=== PATIENT | male | born 1935 | race Caucasian/White ===

== ENCOUNTER 2020-04-02 07:57 | Outpatient (REF) | payer MEDICARE, OTHER, SELFPAY ==
[2020-04-02 11:19] LABS: Prostate Specific Antigen 5.46 ng/mL (<0.05-4.0)
== END 2020-04-02 07:58 | disposition home or self-care (01) ==
LOC: HO.10HDL 07:57
PROVIDERS: Visit Provider Urology
DX: N40.1 Benign prostatic hyperplasia with lower urinary tract symptoms (principal); Z12.5 Encounter for screening for malignant neoplasm of prostate
CPT/HCPCS: 36415; 84153

== ENCOUNTER → 2020-04-03 08:45 | Outpatient (BNVA) | payer MEDICARE, OTHER, SELFPAY | PROVIDERS: Visit Provider Urology | DX: N40.1 Benign prostatic hyperplasia with lower urinary tract symptoms (principal); R35.1 Nocturia; N13.8 Other obstructive and reflux uropathy | CPT/HCPCS: Q3014 ==

== ENCOUNTER 2020-09-01 16:54 | Outpatient (REF) | payer SELFPAY | END 2020-09-01 16:55 | disposition home or self-care (01) | LOC: HO.HAP 16:54 | PROVIDERS: Visit Provider Internal Medicine | DX: Z13.89 Encounter for screening for other disorder (principal) ==

== ENCOUNTER 2020-09-15 13:21 | Outpatient (REF) | payer SELFPAY | END 2020-09-15 13:22 | disposition home or self-care (01) | LOC: HO.HAP 13:21 | PROVIDERS: Visit Provider Hospitalist | DX: Z46.1 Encounter for fitting and adjustment of hearing aid (principal); H90.3 Sensorineural hearing loss, bilateral | CPT/HCPCS: V5014 ==

== ENCOUNTER 2020-09-19 07:54 | Outpatient (REF) | payer MEDICARE, OTHER, SELFPAY ==
--- NOTE | 2020-09-24 10:16 | MHC.AU.AHA ---
Adult Audiological Evaluation Date of Visit: 09/19/20 Machine Iii Coremaker Used: Not Applicable Reason for Appointment: Audiologic re-evaluation to determine possible change in hearing ability. 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 He reports he has experienced problems with the right hearing aid; however the device was replaced recently and Alvin notes the hearing aid is working well with improved hearing. Previous Hearing Test Results: 10/18/2016 [facility] Borderline normal hearing thresholds 125-500 Hz, dropping to a severe/profound high frequency sensorineural hearing loss bilaterally. Speech understanding was 85% for both ears at 80 dB HL Medical History: Medical History: High Blood Pressure Medication List: Lisinopril Hearing Instrument History- Right Ear: Quality Assurance Analyst: GenJuice Model: Boomerang.comeo B 70-R Serial Number: [id number] Battery Size: Rechargeable Repair Warranty: Loss and Damage Warranty: Dispensed By: [facility] Date of Fittin10/27/2016 Replaced 09/09/20 Hearing Instrument History- Left Ear: Quality Assurance Analyst: GenJuice Model: Boomerang.comeo B70-R Serial Number: [id number] Battery Size: Rechargeable Warranty: 01/18/2020 Loss and Damage Warranty: 01/18/2020 Dispensed By: [facility] Date of Fittin10/27/2016 Otoscopy: Right Ear: Unremarkable Left Ear: Unremarkable Tympanometry: Tympanometry performed due to: To assess integrity of the middle ear system Right Ear: Normal Middle Ear System (Type A) Left Ear: Hypercompliant Middle Ear System (Type Ad) Hearing Evaluation: Transducer(s) Used: Insert Earphones Bone Conduction Method: Conventional Audiometry Stimuli Used: Pure Tones Right Ear: Description of Hearing: Mild dropping to profound sensorineural hearing loss Left Ear: Description of Hearing: Mild dropping to profound sensorineural hearing loss Speech Recognition Threshold (SRT): Method Used: Monitored Live Voice Stimuli Used: Spondee Words Right Ear: 40 dB HL Left Ear: 40 dB HL Word Discrimination: Method: Recorded Lists Word Lists Used: NU-6 Right Ear: 88% at 80 dB HL Left Ear: 84% at 80 dB HL Comparison: Compared to most recent evaluation: Overall thresholds for both ears have decreased 5-10 dB with stable speech discrimination ability. Recommendations: Audiological re-evaluation in one year. Will send a reminder card. Hearing aid(s) reprogrammed with updated test results. If further adjustments are needed, [place] is advised to schedule an appointment. Diagnosis: Primary Diagnosis: H90.3 Bilateral Sensorineural Hearing Loss Services Performed: Comprehensive Audiological Evaluation (CPT 26821) Tympanometry (CPT 60229) Signature: Provider: Fidelina Snowden, CHERRY-A
== END 2020-09-19 07:55 | disposition home or self-care (01) ==
LOC: HO.SH 07:54
PROVIDERS: Visit Provider Internal Medicine
DX: H90.3 Sensorineural hearing loss, bilateral (principal)
CPT/HCPCS: 92557; 92567

== ENCOUNTER 2020-10-06 09:15 | Outpatient (REF) | payer MEDICARE, OTHER, SELFPAY ==
[2020-10-06 11:03] LABS: Prostate Specific Antigen 7.43 ng/mL (<0.05-4.0)
== END 2020-10-06 09:16 | disposition home or self-care (01) ==
LOC: HO.10HDL 09:15
PROVIDERS: Visit Provider Urology
DX: Z12.5 Encounter for screening for malignant neoplasm of prostate (principal); N13.8 Other obstructive and reflux uropathy; N40.1 Benign prostatic hyperplasia with lower urinary tract symptoms
CPT/HCPCS: 36415; 84153

== ENCOUNTER 2020-12-10 08:42 | Outpatient (REF) | payer MEDICARE, OTHER, SELFPAY ==
[2020-12-10 11:11] LABS: Prostate Specific Antigen 6.84 ng/mL (<0.05-4.0)
== END 2020-12-10 08:43 | disposition home or self-care (01) ==
LOC: HO.10HDL 08:42
PROVIDERS: Visit Provider Urology
DX: Z12.5 Encounter for screening for malignant neoplasm of prostate (principal); N40.1 Benign prostatic hyperplasia with lower urinary tract symptoms
CPT/HCPCS: 36415; 84153

== ENCOUNTER → 2021-01-23 08:27 | Outpatient (BNVA) | payer MEDICARE, OTHER, SELFPAY | PROVIDERS: PCP Internal Medicine; Visit Provider Urology | DX: N40.1 Benign prostatic hyperplasia with lower urinary tract symptoms (principal); N13.8 Other obstructive and reflux uropathy; R35.1 Nocturia | CPT/HCPCS: 99212 ==

== ENCOUNTER 2021-03-25 01:23 | Emergency (ER) | payer MEDICARE, OTHER, SELFPAY ==
[2021-03-25 01:33] VITALS: BP 116/65; PULSE 90; RESP 18; TEMP 37.3; O2SAT 95; BMI 24.4
[2021-03-25 02:02] LABS: COVID-19 Test Positive (Negative); IDNOW Serial# 9DD0AD1C
== END 2021-03-25 05:19 | disposition left against medical advice (07) ==
PROVIDERS: Emergency Provider Emergency Medicine
DX: R50.9 Fever, unspecified (principal); R06.02 Shortness of breath; Z20.822 Contact with and (suspected) exposure to COVID-19
CPT/HCPCS: 87635; 99281

== ENCOUNTER 2021-07-13 08:47 | Outpatient (REF) | payer MEDICARE, OTHER, SELFPAY | END 2021-07-13 08:48 | disposition home or self-care (01) | LOC: HO.10HDL 08:47 | PROVIDERS: Visit Provider Urology | DX: N40.1 Benign prostatic hyperplasia with lower urinary tract symptoms (principal); N13.8 Other obstructive and reflux uropathy; Z12.5 Encounter for screening for malignant neoplasm of prostate | CPT/HCPCS: 36415; 84153 ==

== ENCOUNTER 2021-07-27 12:18 | Outpatient (REF) | payer SELFPAY | END 2021-07-27 12:19 | disposition home or self-care (01) | LOC: HO.HAP 12:18 | PROVIDERS: Visit Provider Internal Medicine | DX: Z46.1 Encounter for fitting and adjustment of hearing aid (principal); H90.3 Sensorineural hearing loss, bilateral | CPT/HCPCS: V5267 ==

== ENCOUNTER → 2021-07-30 08:24 | Outpatient (BNVA) | payer MEDICARE, OTHER, SELFPAY | PROVIDERS: PCP Internal Medicine; Visit Provider Urology | DX: N40.1 Benign prostatic hyperplasia with lower urinary tract symptoms (principal); N13.8 Other obstructive and reflux uropathy; R35.1 Nocturia | CPT/HCPCS: 51798; 99212 ==

== ENCOUNTER 2021-09-03 19:42 | Emergency (ER) | payer MEDICARE, OTHER, SELFPAY ==
--- NOTE | ~2021-09-03 | XR_ITS ---
EXAMINATION: XR CHEST CLINICAL INFORMATION: Cough COMPARISON: X-ray 04/12/2019 TECHNIQUE: 2 views of the chest were obtained. FINDINGS: Stable cardiomediastinal silhouette. Stable mild elevation right hemidiaphragm. There is hazy opacity in the right lower lung, which could represent infiltrate.. No dense consolidation left lung. No effusion, edema or pneumothorax. Thoracic spine degeneration. XR/XR chest 2V IMPRESSION: Hazy opacity in the right lower lung could represent infiltrate.
[2021-09-03 19:48] VITALS: BP 171/80; PULSE 83; RESP 18; TEMP 37.4; O2SAT 94; BMI 26.6
--- NOTE | 2021-09-03 19:58 | ECG_ITS ---
Test Reason : sob Blood Pressure : / mmHG Vent. Rate : 088 BPM Atrial Rate : 088 BPM P-R Int : 190 ms QRS Dur : 106 ms QT Int : 356 ms P-R-T Axes : 030 -66 061 degrees QTc Int : 430 ms Normal sinus rhythm Incomplete right bundle branch block Left anterior fascicular block Moderate voltage criteria for LVH, may be normal variant ( R in aVL , [place] product ) Abnormal ECG When compared with ECG of 12-APR-2019 12:03, Aberrant conduction is no longer Present Referred By: Generic ED Physician Electronically Signed By:Oliver Aguila
[2021-09-03 20:36] LABS: Basophils Absolute Auto 0.1 X10*3/uL (0.0-0.2); Basophils Percent Auto 0.4 % (0-2); Eosinophils Absolute Auto 0.3 X10*3/uL (0.0-0.4); Hematocrit 40.2 % (42.0-52.0); Hemoglobin 13.9 g/dl (14.0-18.0); Imm Gran Abs Auto 0.08 X10*3/uL (0.00-0.03); Imm Gran Pct Auto 0.6 % (0.0-0.4); Lymphocytes Absolute Auto 1.1 X10*3/uL (1.2-4.9); Lymphocytes Percent Auto 8.1 % (20-40); MANUAL DIFF FLAG SCAN; Mean Corpuscular HGB Conc 34.6 g/dl (31.0-36.0); Mean Corpuscular Hemoglobin 31.2 pg (27.0-33.0); Mean Corpuscular Volume 90.1 fL (80.0-98.0); Mean Platelet Volume 9.6 fL (9.4-12.4); Monocytes Absolute Auto 1.6 X10*3/uL (0.1-1.2); Neutrophils Absolute Auto 10.5 x10*3/uL (2.0-8.3); Neutrophils Percent Auto 76.9 % (45-73); Platelet Count 205 X10*3/uL (160-400); Red Blood Count 4.46 X10*6/uL (4.60-5.80); Red Cell Distribution Width 12.9 % (11.0-16.0); SCAN SMEAR FLAG 1; White Blood Count 13.6 X10*3/uL (4.8-10.8)
--- NOTE | 2021-09-03 20:39 | ED_ITS ---
HPI - Fever General Chief Complaint: Fever Stated Complaint: fever Time Seen by Provider: 09/03/21 20:27 Source: patient Mode of arrival: ambulatory Limitations: no limitations History of Present Illness HPI Narrative: 86-year-old male with a history of high blood pressure, BPH here with reports of subjective fevers for the last 5 days. Patient tells me he has had hot and cold symptoms at home. Patient reports malaise, decreased appetite. He also has a dry cough. No shortness of breath, chest pain, vomiting, diarrhea, abdominal pain, urinary symptoms. Patient tells me he has a history of UTI with bactere tg Related Data Home Medications Medication Instructions Recorded Confirmed acetaminophen 300 mg-codeine 30 mg 1 tab PO PRN 04/03/20 tablet levofloxacin 750 mg tablet 750 mg PO DAILY 04/03/20 lisinopril 10 mg tablet 10 mg PO DAILY 04/03/20 omeprazole 20 mg capsule,delayed 20 mg PO DAILY 04/03/20 release tamsulosin 0.4 mg capsule 0.4 mg PO BEDTIME 04/03/20 trimethoprim 100 mg tablet 100 mg PO DAILY 04/03/20 Previous Rx's Medication Instructions Recorded finasteride 5 mg tablet 5 mg PO DAILY 90 days #90 tabs 01/23/21 finasteride 5 mg tablet 5 mg PO DAILY 90 days #90 tabs 07/30/21 doxycycline monohydrate 100 mg 100 mg PO BID #14 caps 09/03/21 capsule Allergies Allergy/AdvReac Type Severity Reaction Status Date / Time ceftriaxone [CEFTRIAXONE] Allergy Unknown HIVES Verified 09/03/21 19:48 mold [MOLD] Allergy Unknown ITCHIY Verified 09/03/21 19:48 THROAT,STUFFY HEAD Rocephin Allergy Intermediate rash Uncoded 01/23/21 08:35 Review of Systems Review of Systems: Yes all other systems are reviewed and are negative Constitutional: Constitutional: Reports no additional constitutional complaints, Denies body ache(s), Reports chills, Reports fever(s), Denies headache(s), Reports malaise and Denies weakness Eyes: Eyes: Reports no additional eye complaints and Denies change in vision ENT: Reports system reviewed and no additional complaints, except as documented, Denies dizziness, Denies headache(s), Denies nasal congestion, Denies nasal discharge and Denies neck pain Cardiovascular: Cardiovascular: Reports no additional cardiovascular complaints, Denies chest pain, Denies leg edema and Denies dyspnea Respiratory: Respiratory: Reports no additional respiratory complaints, Reports cough and Denies dyspnea Gastrointestinal: Gastrointestinal: Reports no additional gastrointestinal complaints, Denies abdominal pain, Denies diarrhea, Denies nausea and Denies vomiting Genitourinary: Genitourinary: Denies urinary incontinence Musculoskeletal: Musculoskeletal: Reports no additional musculoskeletal complaints, Denies back pain, Denies arthralgias, Denies joint swelling, Denies neck pain, Denies numbness and Denies tingling Integumentary/Breasts: Skin/Breast: Reports system reviewed and no additional complaints, except as docu and Denies rash Neurologic: Reports system reviewed and no additional complaints, except as documented, Denies Abnormal speech present, Denies dizziness, Denies headache(s), Denies numbness, Denies tingling and Denies weakness PMFSH Past Medical History Attestation statement: The following information was validated with the patient. Source: old records reviewed and nursing notes reviewed Social History Social History Alcohol intake: former Patient Tobacco Use Status: Never used Tobacco Advance Directives: No Advance Directives Information Provided: No Physical Exam Vital Signs: Vital Signs: Last Vital Signs Temp 98.7 F 09/03/21 22:52 Pulse 77 09/03/21 22:52 Resp 16 09/03/21 22:52 BP 171/80 H 09/03/21 19:48 Pulse Ox 99 09/03/21 22:52 O2 Del Method 09/03/21 22:52 BMI result Body Mass Index 26.6 Const: General: cooperative, healthy appearing, comfortable and no acute distress Orientation/consciousness: patient oriented x3 Limitations: no limitations HEENT: Head: Yes normal to inspection Ears: hearing grossly normal bilaterally General nose exam: Normal external nose present Face and sinus: Yes normal facial exam Mouth: Normal oral and palatal mucosa present Throat: Yes posterior oropharynx normal Eyes: General: appearance normal, both eyes and all related structures Pupils: Equal, round and reactive pupils present Neck: Neck: Yes normal visual inspection Chest: Chest palpation & inspection: normal inspection of the chest Resp: Effort & Inspection: normal respiratory effort Auscultation: clear to auscultation bilaterally Cardio: Rate: regular rate Rhythm: regular rhythm Peripheral pulses: Peripheral pulses 2+ throughout GI: Inspection: Yes normal to inspection Palpation (GI): Soft to palpation and nontender Auscultation: normal bowel sounds Back/Spine/Pelvis: Thoracic/Lumbar Spine: thoracic and lumbar spine normal to inspection Skin: General skin exam: no rashes or lesions noted Neuro: General: patient oriented x3, no focal motor deficits and normal sensation to monofilament Cranial nerves: Yes Equal, round and reactive pupils present Cognition (Neuro): normal cognition Speech: No Abnormal s peech present Gait exam (Neuro): Normal gait present Motor exam (neuro): 5/5 motor strength present throughout Extrem: General: Yes normal to inspection Course Reevaluation(s) Reevaluation #1: Chest x-ray is concerning for a right lobe infiltrate. UA shows no signs of infection. Labs show mild leukocytosis but otherwise are unremarkable. Patient is afebrile here. He ambulated with a pulse oximeter with oxygen saturation greater than 95% and no tachypnea or tachycardia. Patient feels well. He is alert and oriented x3. He does not want to be admitted to the hospital on like to go home with oral antibiotics. Admission was offered but patient feels comfortable going home. I did explain to him that he will need to return if his blood cultures are positive. He should also return for any worsening symptoms. He is here with family. They are comfortable with plan for discharge. Time: 23:30 MDM - Fever MDM Narrative Medical decision making narrative: 86-year-old male here with subjective fevers, malaise, decreased appetite for 5 days with a dry cough. Will check labs including blood cultures and lactic acid, EKG, chest x-ray, UA, flu and COVID testing. Differential Diagnosis Differential diagnosis: Likely fever of unknown origin, community acquired pneumonia, viral infection, sepsis and influenza Medical Records Attestation: I reviewed the patient's medical records. Lab Data Attestation: I reviewed the patient's lab results. Result diagrams: 09/03/21 20:22 09/03/21 20:22 Labs: Lab Results 09/03/21 09/03/21 09/03/21 Range/Units 20:04 20:22 20:22 WBC 13.6 H (4.8-10.8) X10*3/uL RBC 4.46 L (4.60-5.80) X10*6/uL Hgb 13.9 L (14.0-18.0) g/dl Hct 40.2 L (42.0-52.0) % MCV 90.1 (80.0-98.0) fL MCH 31.2 (27.0-33.0) pg MCHC 34.6 (31.0-36.0) g/dl RDW 12.9 (11.0-16.0) % Plt Count 205 (160-400) X10*3/uL MPV 9.6 (9.4-12.4) fL Immature Gran % (Auto) 0.6 H (0.0-0.4) % Neut % (Auto) 76.9 H (45-73) % Lymph % (Auto) 8.1 L (20-40) % [place] % (Auto) 12.0 H (2-11) % Eos % (Auto) 2.0 (0-4) % Baso % (Auto) 0.4 (0-2) % Lymph # (Auto) 1.1 L (1.2-4.9) X10*3/uL [place] # (Auto) 1.6 H (0.1-1.2) X10*3/uL Eos # (Auto) 0.3 (0.0-0.4) X10*3/uL Baso # (Auto) 0.1 (0.0-0.2) X10*3/uL Abs Immat Gran (auto) 0.08 H (0.00-0.03) X10*3/uL Absolute Neuts (auto) 10.5 H (2.0-8.3) x10*3/uL Absolute Nucleated RBC 0.000 (0.0-0.012) X10*3/uL Nucleated RBC % (auto) 0.0 (0.0-0.2) /100WBC Smear Tech's Comments VERIFIED Sodium 132 L (135-145) mmol/L Potassium 4.5 (3.3-5.1) mmol/L Chloride 104 (96-108) mmol/L Carbon Dioxide 21 L (22-29) mmol/L Anion Gap 12 (12-20) BUN 21 H (9-16) mg/dL Creatinine 1.01 (0.5-1.4) mg/dL Estim Creat Clear Calc 57.6 Estimated GFR > 60 Random Glucose 100 (60-115) mg/dL Lactic Acid (0.5-2.0) mmol/L Calcium 8.9 (8.4-10.2) mg/dL Total Bilirubin 1.0 (0.0-1.0) mg/dL AST 19 (5-37) U/L ALT 21 (0-40) U/L Alkaline Phosphatase 53 (39-117) U/L Troponin I High Sens (<3.5-35.0) ng/L Total Protein 7.1 (6.5-8.0) g/dL Albumin 4.0 (3.5-5.0) g/dL Urine Color Urine Appearance Urine pH (5.0-8.0) Ur Specific [place] (1.005-1.025) Urine Protein (NEG-TRACE) MG/DL Urine Glucose (UA) (NEG) MG/DL Urine Ketones (NEG) MG/DL Urine Blood (NEG) Urine Nitrite (NEG) Ur Leukocyte Esterase (NEG) Urine RBC (0) /HPF Urine WBC (0-4) /HPF Ur Squamous Epith Cells /LPF Urine Bacteria /LPF Influenza Type A (PCR) NEGATIVE (Negative) Influenza Type B (PCR) NEGATIVE (Negative) RSV RNA Qual (PCR) NEGATIVE (Negative) SARS-CoV-2 RNA (RT-PCR) NEGATIVE (Negative) 09/03/21 09/03/21 09/03/21 Range/Units 20:22 20:22 21:24 WBC (4.8-10.8) X10*3/uL RBC (4.60-5.80) X10*6/uL Hgb (14.0-18.0) g/dl Hct (42.0-52.0) % MCV (80.0-98.0) fL MCH (27.0-33.0) pg MCHC (31.0-36.0) g/dl RDW (11.0-16.0) % Plt Count (160-400) X10*3/uL MPV (9.4-12.4) fL Immature Gran % (Auto) (0.0-0.4) % Neut % (Auto) (45-73) % Lymph % (Auto) (20-40) % [place] % (Auto) (2-11) % Eos % (Auto) (0-4) % Baso % (Auto) (0-2) % Lymph # (Auto) (1.2-4.9) X10*3/uL [place] # (Auto) (0.1-1.2) X10*3/uL Eos # (Auto) (0.0-0.4) X10*3/uL Baso # (Auto) (0.0-0.2) X10*3/uL Abs Immat Gran (auto) (0.00-0.03) X10*3/uL Absolute Neuts (auto) (2.0-8.3) x10*3/uL Absolute Nucleated RBC (0.0-0.012) X10*3/uL Nucleated RBC % (auto) (0.0-0.2) /100WBC Smear Tech's Comments Sodium (135-145) mmol/L Potassium (3.3-5.1) mmol/L Chloride (96-108) mmol/L Carbon Dioxide (22-29) mmol/L Anion Gap (12-20) BUN (9-16) mg/dL Creatinine (0.5-1.4) mg/dL Estim Creat Clear Calc Estimated GFR Random Glucose (60-115) mg/dL Lactic Acid 0.7 (0.5-2.0) mmol/L Calcium (8.4-10.2) mg/dL Total Bilirubin (0.0-1.0) mg/dL AST (5-37) U/L ALT (0-40) U/L Alkaline Phosphatase (39-117) U/L Troponin I High Sens 11.8 (<3.5-35.0) ng/L Total Protein (6.5-8.0) g/dL Albumin (3.5-5.0) g/dL Urine Color YELLOW Urine Appearance CLEAR Urine pH 5.5 (5.0-8.0) Ur Specific [place] <= 1.005 (1.005-1.025) Urine Protein NEG (NEG-TRACE) MG/DL Urine Glucose (UA) NEG (NEG) MG/DL Urine Ketones NEG (NEG) MG/DL Urine Blood 1+ H (NEG) Urine Nitrite NEG (NEG) Ur Leukocyte Esterase TRACE H (NEG) Urine RBC 1-4 (0) /HPF Urine WBC 0-2 (0-4) /HPF Ur Squamous Epith Cells NONE /LPF Urine Bacteria TRACE /LPF Influenza Type A (PCR) (Negative) Influenza Type B (PCR) (Negative) RSV RNA Qual (PCR) (Negative) SARS-CoV-2 RNA (RT-PCR) (Negative) Imaging Data Chest x-ray: Attestation: I personally reviewed and interpreted this imaging study as follows: Radiologist's impression: [address] [address] XRay Report Signed Patient: Alvin Staley MR#: [id number] : 1935 Acct:[id number] Age/Sex: 86 / M ADM Date: 09/03/21 Loc: .ED Attending Dr: Ordering Physician: Juanjose Anaya MD Date of Service: 09/03/21 Procedure(s): XR chest 2V Accession Number(s): [id number] cc: Juanjose Anaya MD~ EXAMINATION: XR CHEST CLINICAL INFORMATION: Cough COMPARISON: X-ray 04/12/2019 TECHNIQUE: 2 views of the chest were obtained. FINDINGS: Stable cardiomediastinal silhouette. Stable mild elevation right hemidiaphragm. There is hazy opacity in the right lower lung, which could represent infiltrate.. No dense consolidation left lung. No effusion, edema or pneumothorax. Thoracic spine degeneration. XR/XR chest 2V IMPRESSION: Hazy opacity in the right lower lung could represent infiltrate. ECG Data ECG #1: Attestation: I personally reviewed and interpreted this ECG as follows: ECG interpretation date: 09/03/21 ECG interpretation time: 19:56 Interpretation: Normal sinus rhythm with a rate 88, normal MA, normal QRS, normal QT, flipped T- waves solitary avl Discharge Plan Discharge Clinical Impression: Pneumonia Patient Disposition: Home, Self-Care Instructions: Pneumonia (ED) Additional Instructions: Testing for flu and COVID are negative Chest x-ray shows a right-sided pneumonia. Urine shows no signs of infection. He has a mildly elevated white blood cell count which can be seen with infection. He had blood cultures at will sent. These take 1-2 days to be resulted. We will call you if these are positive. At that time he will need to return for admission to the hospital. If he should develop weakness, vomiting, confusion, difficulty breathing he should return to the emergency department. We did discuss staying in the hospital overnight but he did not feel like he needed this and wanted to go home Prescriptions: New doxycycline monohydrate 100 mg capsule 100 mg PO BID Qty: 14 0RF No Action lisinopril 10 mg tablet 10 mg PO DAILY trimethoprim 100 mg tablet 100 mg PO DAILY acetaminophen-codeine 300-30 mg tablet 1 tab PO PRN tamsulosin 0.4 mg capsule 0.4 mg PO BEDTIME levofloxacin 750 mg tablet 750 mg PO DAILY omeprazole 20 mg capsule,delayed release(DR/EC) 20 mg PO DAILY finasteride 5 mg tablet 5 mg PO DAILY 90 Days Qty: 90 1RF Rx Instructions: Take Tuesday, Tuesday, Tuesday finasteride 5 mg tablet 5 mg PO DAILY 90 Days Qty: 90 3RF Referrals: Physician,Unknown J [Primary Care Provider] - 1 week (as needed) Interventions: ED Discharge Assessment Last Done: 09/03/21 23:48 Discharge Date/Time: 09/03/21 23:49
[2021-09-03] MEDS: 0.9 % Sodium Chloride 1,000 ML 999 ML IV (20:42)
[2021-09-03 20:44] VITALS: TEMP 37.4
[2021-09-03 20:49] LABS: Influenza A PCR NEGATIVE (Negative); Influenza B PCR NEGATIVE (Negative); Resp Syncy Virus RNA Qual PCR NEGATIVE (Negative); SARS COV2 PCR INHOUSE NEGATIVE (Negative)
[2021-09-03 20:52] LABS: Lactic Acid 0.7 mmol/L (0.5-2.0)
[2021-09-03 20:53] LABS: SLIDE REVIEW VERIFIED
[2021-09-03 20:56] LABS: Alanine Aminotransferase 21 U/L (0-40); Alkaline Phosphatase 53 U/L (39-117); Anion Gap 12 (12-20); Aspartate Amino Transferase 19 U/L (5-37); Blood Urea Nitrogen 21 mg/dL (9-16); Calcium 8.9 mg/dL (8.4-10.2); Carbon Dioxide 21 mmol/L (22-29); Chloride 104 mmol/L (96-108); Creatinine Clr Calc Pharmacy 57.6; Estimated Glomerular Filt Rate > 60; Glucose Random 100 mg/dL (60-115); Potassium 4.5 mmol/L (3.3-5.1); Sodium 132 mmol/L (135-145); Total Protein 7.1 g/dL (6.5-8.0)
[2021-09-03 21:02] LABS: Troponin-I High Sensitivity 11.8 ng/L (<3.5-35.0)
[2021-09-03 21:37] LABS: Appearance Urine CLEAR; Color Urine YELLOW; Glucose Urine UA NEG (NEG); Leukocyte Esterase Urine TRACE (NEG); Nitrite Urine NEG (NEG); PH 5.5 (5.0-8.0); Specific Gravity - Urine <= 1.005 (1.005-1.025); UACC Culture Trigger NO; Urine Blood 1+ (NEG); Urine Ketones NEG (NEG); Urine Protein NEG (NEG-TRACE)
[2021-09-03 21:44] LABS: WBC Urine 0-2 /HPF (0-4)
[2021-09-03 21:45] LABS: Bacteria Urine TRACE /LPF
[2021-09-03] MEDS: Acetaminophen 325 MG TABLET 975 MG PO (22:10)
[2021-09-03 22:52] VITALS: PULSE 77; RESP 16; TEMP 37.1; O2SAT 99
== END 2021-09-03 23:49 | disposition home or self-care (01) ==
PROVIDERS: Emergency Provider Emergency Medicine Emergency Medical Services
DX: J18.9 Pneumonia, unspecified organism (principal); Z20.822 Contact with and (suspected) exposure to COVID-19; R50.9 Fever, unspecified
CPT/HCPCS: 0241U; 36415; 71046; 80053; 81001; 83605; 84484; 85025; 87040; 93005; 96360; 99284; 99285

== ENCOUNTER 2021-10-08 10:56 | Outpatient (REF) | payer MEDICARE, OTHER, SELFPAY ==
--- NOTE | ~2021-10-08 | XR_ITS ---
EXAMINATION: XR CHEST 2 VIEWS CLINICAL INFORMATION: Right lower lobe pneumonia. COMPARISON: Chest radiographs dated 09/03/2021. TECHNIQUE: Frontal and lateral views of the chest were obtained. FINDINGS: The heart, great vessels, pulmonary vasculature and mediastinum are normal. The lungs show no focal infiltrate, effusion or pneumothorax. There is stable moderate elevation of the right hemidiaphragm. There is no acute osseous abnormality. XR/XR chest 2V IMPRESSION: No active cardiopulmonary disease. Again, there is moderate elevation of the right hemidiaphragm.
== END 2021-10-08 10:57 | disposition home or self-care (01) ==
LOC: HO.XRAY 10:56
PROVIDERS: PCP Internal Medicine; Visit Provider Internal Medicine
DX: J18.9 Pneumonia, unspecified organism (principal)
CPT/HCPCS: 71046

== ENCOUNTER 2021-12-29 13:47 | Outpatient (REF) | payer MEDICARE, OTHER, SELFPAY | END 2021-12-29 13:48 | disposition home or self-care (01) | LOC: HO.SH 13:47 | PROVIDERS: Visit Provider Nurse Practitioner Family | DX: Z01.118 Encounter for examination of ears and hearing with other abnormal findings (principal); H90.3 Sensorineural hearing loss, bilateral | CPT/HCPCS: 92557 ==

== ENCOUNTER 2021-12-29 16:30 | Outpatient (REF) | payer SELFPAY ==
--- NOTE | 2021-12-30 13:05 | MHC.AU.HFU ---
Hearing Instrument Follow-Up- Binaural Date of Visit: 12/29/21 Right Ear: [place] Trimmer: Phonak Model: Audeo B 70-R Serial Number: [id number] Repair Warranty: Battery Size: Rechargeable Color: Sand Beige Health Professional: 3xS Type of Dome: Medium closed Type of Wax Guard: Cerustop Dispensed By: [facility] Date of Fittin10/27/2016 Replaced 09/09/20 Left Ear: [place] Trimmer: Phonak Model: Audeo B70-R Serial Number: [id number] Repair Warranty: Battery Size: Rechargeable Color: Sand Beige Health Professional: 3xS Type of Dome: Medium closed Type of Wax Guard: Cerustop Dispensed By: [facility] Date of Fittin10/27/2016 Follow-Up Summary: Alvin returned for hearing aid maintenance, as his left hearing aid is missing the data librarian wire. He reported the wire became twisted and broke off from the hearing aid a couple weeks ago. Both of his hearing aids were cleaned, microphones were vacuumed, and domes and wax guards were replaced. A new data librarian was replaced on the left hearing aid. A listening check demonstrated the hearing aids are in good working order. Programming changes were not made today, as Alvin's hearing has remained stable and he reported overall good sound quality and benefit from the hearing aids. Recommendations: Hearing instrument maintenance in 6 months, or sooner if needed. Please contact our clinic with any questions or concerns. Diagnosis Code(s): Primary Diagnosis: H90.3 Bilateral Sensorineural Hearing Loss Signature: Provider: Kathryn Parker, [facility]
== END 2021-12-29 16:31 | disposition home or self-care (01) ==
LOC: HO.HAP 16:30
PROVIDERS: Visit Provider Internal Medicine
DX: Z46.1 Encounter for fitting and adjustment of hearing aid (principal); H90.3 Sensorineural hearing loss, bilateral
CPT/HCPCS: V5299

== ENCOUNTER 2021-12-30 08:17 | Outpatient (REF) | payer MEDICARE, OTHER, SELFPAY | END 2021-12-30 08:18 | disposition home or self-care (01) | LOC: HO.HAP 08:17 | PROVIDERS: Visit Provider Internal Medicine | DX: Z13.89 Encounter for screening for other disorder (principal) ==

== ENCOUNTER 2021-12-30 08:35 | Outpatient (REF) | payer MEDICARE, OTHER, SELFPAY | END 2021-12-30 08:36 | disposition home or self-care (01) | LOC: HO.HAP 08:35 | PROVIDERS: Visit Provider Internal Medicine | DX: Z13.89 Encounter for screening for other disorder (principal) ==

== ENCOUNTER → 2022-03-23 10:38 | Outpatient (BNVA) | payer MEDICARE, OTHER, SELFPAY | PROVIDERS: Visit Provider Orthopaedic Surgery | DX: M65.341 Trigger finger, right ring finger (principal) | CPT/HCPCS: 99202 ==

== ENCOUNTER 2022-03-29 10:54 | Day surgery (SDC) | payer MEDICARE, OTHER, SELFPAY ==
[2022-03-29 11:04] VITALS: BMI 26.6
--- NOTE | 2022-03-29 12:26 | MHC.SHP ---
Pre-Procedural Eval Section A Date of Service: 03/29/22 The patient is an INPATIENT: No Changes since office visit: No Cold of Flu in the past 2 weeks, No New Medical Problems, No Changes in Medication and No Patient answered all questions The History & Physical has been completed within 30 days and I have reviewed it.: Yes Section B Chief Complaint: Trigger finger, right ring finger Allergies: Allergies Allergy/AdvReac Type Severity Reaction Status Date / Time ceftriaxone [CEFTRIAXONE] Allergy Unknown HIVES/RASH Verified 03/26/22 13:14 mold [MOLD] Allergy Unknown ITCHIY Verified 03/23/22 10:44 THROAT,STUFFY HEAD Plan I have reviewed the history and physical and performed a pertinent physical examination on my patient. No changes have occurred unless specified. Time Spent With Patient Time: Total time managing care of this patient today ____ minutes.
--- NOTE | 2022-03-29 12:27 | P.OP_ITS ---
Operative Note Operative Note Date of Service: 03/29/22 Narrative: Operative Note Preop diagnosis: 1. right ring finger Trigger finger Postop diagnosis: 1. right ring finger Trigger finger Procedure: 1. right ring finger A1 khanh release Surgeon: Diamante Bettencourt MD Anesthesia: local block using 1% lidocaine with epinephrine Findings: No locking or catching after A1 khanh release EBL: Less than 5 mL Tourniquet time: None Specimens: None Complications: None Disposition: Brought to recovery room in stable condition Plan: Follow-up for 10-14 days for wound check and suture removal Indications: The patient is 87 years old, with a right ring finger trigger finger that has been unresponsive to nonoperative management. The risks and benefits of operative treatment including but not limited to risk of damage to blood vessels, nerves, tendons, infection, persistent pain, persistent symptoms, recurrence or possible need for additional surgery were discussed with the patient and the patient wishes to proceed with surgery. Procedure: Once consent was obtained a local block was performed in the preop area using a combination of 1% lidocaine with epinephrine. The patient was then brought back to the operating suite and placed on the operative table in supine position. A tourniquet was applied to the proximal aspect of the right upper extremity and the limb was prepped and draped in a standard surgical fashion. Once assured that we had a good block, a 1.5 cm oblique incision was made centered over the A1 khanh of the right ring finger . The incision was made through the skin to the subcutaneous tissues using a #15 blade. Careful dissection was made down to the level of the A1 khanh using tenotomy scissors, with care being taken to protect the nearby neurovascular structures. A longitudinal incision was made in the A1 khanh 1st using a #15 blade, then using tenotomy scissors under direct visualization. The A1 khanh was noted to be thickened. Following our A1 khanh release, we no longer saw any locking or catching of the digit with flexion and extension. Once satisfied with our A1 khanh release the wound was copiously irrigated with normal saline and hemostasis was obtained with a brief period of local pressure. The skin edges were reapproximated with some 5.0 nylon suture material and a sterile dressing was applied. The patient appears to have tolerated the procedure well and with no co mplications. All digits were well vascularized at the conclusion of the case.
[2022-03-29 13:13] VITALS: BP 155/79; PULSE 75; RESP 18; O2SAT 96
== END 2022-03-29 13:14 | disposition home or self-care (01) ==
PROVIDERS: PCP Internal Medicine; Visit Provider Orthopaedic Surgery
PROC: (CPT 26055; principal; 2022-03-29 13:00)
DX: M65.341 Trigger finger, right ring finger (principal); Z88.1 Allergy status to other antibiotic agents
CPT/HCPCS: 26055; J0171

== ENCOUNTER → 2022-04-13 12:51 | Outpatient (BNVA) | payer MEDICARE, OTHER, SELFPAY | PROVIDERS: PCP Internal Medicine; Visit Provider Orthopaedic Surgery | DX: Z13.89 Encounter for screening for other disorder (principal) | CPT/HCPCS: 99212 ==

== ENCOUNTER 2022-07-19 13:36 | Outpatient (REF) | payer MEDICARE, OTHER, SELFPAY ==
[2022-07-19 15:13] LABS: Prostate Specific Antigen 7.83 ng/mL (<0.05-4.0)
== END 2022-07-19 13:37 | disposition home or self-care (01) ==
LOC: HO.LAB 13:36
PROVIDERS: Visit Provider Urology
DX: Z12.5 Encounter for screening for malignant neoplasm of prostate (principal); N40.1 Benign prostatic hyperplasia with lower urinary tract symptoms; N13.8 Other obstructive and reflux uropathy
CPT/HCPCS: 36415; 84153

== ENCOUNTER → 2022-08-03 08:20 | Outpatient (BNVA) | payer MEDICARE, OTHER, SELFPAY | PROVIDERS: PCP Internal Medicine; Visit Provider Urology | DX: N40.1 Benign prostatic hyperplasia with lower urinary tract symptoms (principal); N13.8 Other obstructive and reflux uropathy; R35.1 Nocturia | CPT/HCPCS: 99212 ==

== ENCOUNTER 2022-10-05 12:07 | Outpatient (REF) | payer MEDICARE, OTHER, SELFPAY | END 2022-10-05 12:08 | disposition home or self-care (01) | LOC: HO.HAP 12:07 | PROVIDERS: Visit Provider Internal Medicine | DX: Z13.89 Encounter for screening for other disorder (principal) ==

== ENCOUNTER 2022-10-18 11:04 | Outpatient (REF) | payer SELFPAY | END 2022-10-18 11:05 | disposition home or self-care (01) | LOC: HO.HAP 11:04 | PROVIDERS: Visit Provider Internal Medicine | DX: Z46.1 Encounter for fitting and adjustment of hearing aid (principal) | CPT/HCPCS: V5014 ==

== ENCOUNTER 2022-11-09 17:16 | Emergency (ER) | payer MEDICARE, OTHER, SELFPAY ==
--- NOTE | ~2022-11-09 | CT_ITS ---
EXAMINATION: CT HEAD WITHOUT CONTRAST CT CERVICAL SPINE WITHOUT CONTRAST CLINICAL INFORMATION: Trauma. COMPARISON: CT head 04/12/2019. TECHNIQUE: Contiguous axial imaging was performed from the skull base to vertex without intravenous administration of contrast. Contiguous axial imaging was performed from the upper chest through the skull base without intravenous administration of contrast. Coronal and sagittal reformats were obtained at the acquisition workstation. This CT examination was performed using dose optimization techniques as appropriate, variously including the following: *Automated exposure control *Adjustment of mA and/or kV according to patient size (this includes techniques or standardized protocols for targeted exams where dose is matched to indication/reason for exam; i.e. extremities or head) *Use of iterative reconstruction technique DLP: 681 and 619 mGy-cm FINDINGS: Head: There is no evidence of acute intracranial hemorrhage or edematous territorial infarction. Scattered hypoattenuation in the periventricular and deep white matter are consistent with moderate microangiopathy. Chronic bilateral lacunar infarcts in the basal ganglia. Romero-white matter differentiation is preserved. Proportional prominence of the ventricles and sulcal spaces. No evidence for obstructive hydrocephalus. No abnormal mass effect or midline shift. No extra-axial fluid collections. Right high frontal scalp laceration and hematoma. No displaced calvarial fracture. Mucus retention cyst in the left maxillary sinus. Otherwise, paranasal sinuses, mastoids and middle ear cavities are clear. Bilateral lens extraction. Cervical Spine: Minimal grade 1 anterolisthesis of C2 on C3, likely degenerative or positional. No evidence of acute compression deformity or traumatic subluxation. Moderate to severe multilevel intervertebral disc height loss. Prominent anterior osteophyte complexes at C5-C6. Prominent multilevel posterior osteophyte complexes leading to various degrees of neural foraminal encroachment as well as mild central spinal canal stenosis. No prevertebral soft tissue thickening. Limited evaluation of the thyroid gland due to motion. The remaining cervical soft tissues are normal in appearance. The lung apices demonstrate no abnormalities. CT/CT cervical spine wo IV con IMPRESSION: 1. Right high frontal scalp laceration and hematoma without acute intracranial abnormalities. 2. 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 3. Chronic bilateral lacunar infarcts in the basal ganglia. 4. No acute cervical fractures or malalignment. 5. Moderate to severe cervical spondylosis with various degrees of multilevel neural foraminal encroachment as well as mild central spinal canal stenosis. Evaluation with an MRI of the cervical spine could be obtained as clinically indicated..
[2022-11-09 17:17] VITALS: BP 143/79; PULSE 75; RESP 18; TEMP 36.9; O2SAT 96; BMI 30.1
--- NOTE | 2022-11-09 17:17 | ED_ITS ---
HPI - Fall General Chief Complaint: Head Injury Stated Complaint: fall/Head inj Time Seen by Provider: 11/09/22 17:35 Related Data Home Medications Medication Instructions Recorded Confirmed lisinopril 10 mg tablet 10 mg PO DAILY 04/03/20 08/03/22 omeprazole 20 mg capsule,delayed 20 mg PO DAILY 04/03/20 08/03/22 release tamsulosin 0.4 mg capsule 0.4 mg PO BEDTIME 04/03/20 08/03/22 Allergies Allergy/AdvReac Type Severity Reaction Status Date / Time ceftriaxone [CEFTRIAXONE] Allergy Unknown HIVES/RASH Verified 11/10/22 09:28 mold [MOLD] Allergy Unknown ITCHIY Verified 11/10/22 09:28 THROAT,STUFFY HEAD PMFSH Social History Social History Alcohol intake: former Patient Tobacco Use Status: Never used Tobacco Advance Directives: Yes Advance Directives Information Provided: No Advance Directives on File: No Current occupation: right hand dominant Physical Exam Vital Signs: Vital Signs: Last Vital Signs Temp 97.8 F 11/09/22 19:26 Pulse 52 11/09/22 19:26 Resp 16 11/09/22 19:26 BP 156/79 H 11/09/22 19:26 Pulse Ox 98 11/09/22 19:26 O2 Del Method Room Air 11/09/22 19:26 BMI result Body Mass Index 30.1 Course Course Course Narrative: RME: 87yo M w/PMHx BPH, on baby ASA c/o scalp laceration & headache s/p mechanical trip & fall up the stairs [employer] w/+head strike. Denies LOC. tetanus unknown. denies sx prior to fall +large palpable skull depression w/laceration noted to top of head. Labs, Head/C-spine CT ordered Full HPI, ROS and PE to be performed by primary ED provider. Medications Administered Discontinued Medications Generic Name Dose Route Start Last Admin Trade Name Freq PRN Reason Stop Dose Admin Diphtheria/Tetanus/Acell Pertussis 0.5 ml 11/09/22 17:21 11/09/22 18:25 Diphth,Pertus(Acell),Tet Adult 0.5 Ml Syringe IM 11/09/22 17:22 0.5 ml .ONCE ONE Administration Medical Decision Making Lab Data 11/09/22 17:58 11/09/22 17:58 Labs: Lab Results 11/09/22 11/09/22 11/09/22 Range/Units 17:58 17:58 17:58 WBC 10.3 (4.8-10.8) X10*3/uL RBC 4.58 L (4.60-5.80) X10*6/uL Hgb 14.3 (14.0-18.0) g/dl Hct 42.3 (42.0-52.0) % MCV 92.4 (80.0-98.0) fL MCH 31.2 (27.0-33.0) pg MCHC 33.8 (31.0-36.0) g/dl RDW 12.9 (11.0-16.0) % Plt Count 249 (160-400) X10*3/uL MPV 9.7 (9.4-12.4) fL Immature Gran % (Auto) 0.3 (0.0-0.4) % Neut % (Auto) 56.9 (45-73) % Lymph % (Auto) 26.7 (20-40) % [place] % (Auto) 10.0 (2-11) % Eos % (Auto) 5.5 H (0-4) % Baso % (Auto) 0.6 (0-2) % Lymph # (Auto) 2.8 (1.2-4.9) X10*3/uL [place] # (Auto) 1.0 (0.1-1.2) X10*3/uL Eos # (Auto) 0.6 H (0.0-0.4) X10*3/uL Baso # (Auto) 0.1 (0.0-0.2) X10*3/uL Abs Immat Gran (auto) 0.03 (0.00-0.03) X10*3/uL Absolute Neuts (auto) 5.9 (2.0-8.3) x10*3/uL Absolute Nucleated RBC 0.000 (0.0-0.012) X10*3/uL Nucleated RBC % (auto) 0.0 (0.0-0.2) /100WBC PT 11.5 (11.1-13.3) SEC INR 0.9 (0.9-1.1) Sodium 140 (135-145) mmol/L Potassium 4.4 (3.3-5.1) mmol/L Chloride 109 H (96-108) mmol/L Carbon Dioxide 24 (22-29) mmol/L Anion Gap 11 L (12-20) BUN 19 H (9-16) mg/dL Creatinine 0.96 (0.5-1.4) mg/dL Estim Creat Clear Calc 57.1 Estimated GFR > 60 Random Glucose 98 (60-115) mg/dL Calcium 9.5 D (8.4-10.2) mg/dL Discharge Plan Discharge Clinical Impression: Laceration of scalp, Head injury Patient Disposition: Home, Self-Care Instructions: Laceration (ED), Head Injury (ED), Staple Care (ED) Additional Instructions: return to the ED immediately for any headache, nausea, vomit, altered mental status, lethargy, photophobia, chest pain, shortness of breath, rectal bleeding, vomiting blood, bloody urine, or any other concerning symptoms. Please follow up with primary care provider. [place] should be removed in 10 days. You were given copy of images. Prescriptions: No Action lisinopril 10 mg tablet 10 mg PO DAILY tamsulosin 0.4 mg capsule 0.4 mg PO BEDTIME omeprazole 20 mg capsule,delayed release(DR/EC) 20 mg PO DAILY Interventions: ED Discharge Assessment Last Done: 11/09/22 20:28 Discharge Date/Time: 11/09/22 20:29 Print Language: Hungarian
--- NOTE | 2022-11-09 17:51 | ED.GENADULT ---
HPI - General Adult General Chief complaint: Head Injury Stated complaint: fall/Head inj Time Seen by Provider: 11/09/22 17:35 Source: patient Mode of arrival: ambulatory Limitations: no limitations History of Present Illness HPI narrative: 87 yold male on baby aspirin presents to the ED for head injury. patient states he was outside walking up outdoor step and he tripped over cement and fell unto his head. patietn denies hitting chest, abdomen, back, or upper/lower extremities. Patient denies any loss of consciousness, neck pain, chest pain, shortness of breath, abdominal pain, rectal bleeding, dizziness, nausea, or vomitting. Patient unknown when last tetanus. patient denies any dizziness, chest pain, shortenss of breath, or headache before falling. patient states states this was a mechanical fall. Patient states he was late and [place] for date and was on a phone call was running up the stairs real fast and he tripped over the cement which caused him to fall. Related Data Home Medications Medication Instructions Recorded Confirmed lisinopril 10 mg tablet 10 mg PO DAILY 04/03/20 08/03/22 omeprazole 20 mg capsule,delayed 20 mg PO DAILY 04/03/20 08/03/22 release tamsulosin 0.4 mg capsule 0.4 mg PO BEDTIME 04/03/20 08/03/22 Allergies Allergy/AdvReac Type Severity Reaction Status Date / Time ceftriaxone [CEFTRIAXONE] Allergy Unknown HIVES/RASH Verified 11/10/22 09:28 mold [MOLD] Allergy Unknown ITCHIY Verified 11/10/22 09:28 THROAT,STUFFY HEAD Review of Systems Review of Systems: Yes all other systems are reviewed and are negative [facility] Social History Social History Alcohol intake: former Patient Tobacco Use Status: Never used Tobacco Advance Directives: Yes Advance Directives Information Provided: No Advance Directives on File: No Current occupation: right hand dominant Physical Exam ED Vital Signs: Vital Signs - 24 hr 11/09/22 17:17 11/09/22 18:09 11/09/22 19:26 Temperature 98.4 F 97.8 F Pulse Rate 75 60 52 Respiratory Rate 18 16 16 Blood Pressure 143/79 H 148/78 H 156/79 H Pulse Oximetry 96 94 98 Oxygen Delivery Method Room Air Room Air Room Air BMI result Body Mass Index 30.1 Const General: cooperative, healthy appearing, comfortable, no acute distress, well developed, alert, awake and Physically active Orientation/consciousness: oriented to person, oriented to place, oriented to time and patient oriented x3 HENMT Head: Yes normal to inspection, Yes No palpable skull fracture present and Yes normocephalic Head images: 1. Right temporal laceration 5-6 cm. Active bleeding. Mild tenderness on palpation Ears: hearing grossly normal bilaterally, external ears normal, TM's normal bilaterally, TM normal on the right, TM normal on the left, EAC's normal, mastoids normal and no periauricular adenopathy Mouth: Normal oral and palatal mucosa present, lip normal and tongue normal Throat: Yes posterior oropharynx normal, Yes tonsils normal and Yes uvula midline Eyes General: appearance normal, both eyes and all related structures Neck Neck: Yes normal visual inspection, Yes full ROM, Yes no lymphadenopathy, Yes no meningeal signs, Yes trachea midline, Yes supple, No anterior neck swelling and No tender Chest Chest palpation & inspection: normal inspection of the chest and normal palpation of entire chest wall Resp Effort & Inspection: normal respiratory effort and able to speak in complete sentences Auscultation: clear to auscultation bilaterally Cardio Jugular venous distension: no JVD Heart sounds: S1 normal heart sound present and S2 normal heart sound present GI Inspection: Yes normal to inspection and No abdominal wall ecchymosis Palpation (GI): Soft to palpation, not firm, nontender, no guarding and not rigid General: No CVA tenderness and Yes no CVA tenderness Back/Spine/Pelvis Back: no CVA tenderness, No CVA tenderness and No back tenderness Skin General skin exam: no rashes or lesions noted, elasticity normal and turgor normal Neuro General: oriented to person, oriented to place, oriented to time, patient oriented x3, gait normal, tone normal, moves all extremities, Normal light touch and pain sensation, no meningeal signs, no focal motor deficits, CN's II-XI intact bilaterally and normal sensation to monofilament Extrem General: Yes normal to inspection and Yes full ROM Knee images: 1. small abrasion without any tenderness on palpation. Negative for crepitus, ecchymosis, deformity, elasticity. Motor/ neuro/vascular exam intact. 2. small abrasion without any tenderness on palpation. Negative for crepitus, ecchymosis, deformity, elasticity. Motor/ neuro/vascular exam intact. Psych Appearance: grossly normal, well kempt and not disheveled Medications Administered Discontinued Medications Generic Name Dose Route Start Last Admin Trade Name Elizabeth PRN Reason Stop Dose Admin Diphtheria/Tetanus/Acell Pertussis 0.5 ml 11/09/22 17:21 11/09/22 18:25 Diphth,Pertus(Acell),Tet Adult 0.5 Ml Syringe IM 11/09/22 17:22 0.5 ml .ONCE ONE Administration Medical Decision Making Medical Decision Making MDM Narrative: 87-year-old male with head trauma without any LOC on aspirin due to mechanical fall. Patient denies any other complaint he cites pain with laceration on right temporal scalp. Patient alert oriented x3. Patient given tetanus. Imaging of head and cervical spine CT scan ordered. basic labs were ordered from triage were normal. mechanical fall no need for cardiac evaluation. Fall was witnessed. Head CT scan and cervical spine CT scan normal. Wound clean. A DTaP Given. Twelve nancy placed into wound. Patient given copy of imaging for follow up. Differential Diagnosis Differential Diagnoses: The differential diagnosis associated with the presentation includes ( brain bleed, skull fracture, cervical spine fracture, cervical spine subluxation) Admission/Observation Consideration of admission/observation: Escalation of care including admission/observation considered Lab Data [facility] Lab Attestation statement: I reviewed the patient's lab results. 11/09/22 17:58 11/09/22 17:58 Labs: Lab Results 11/09/22 11/09/22 11/09/22 Range/Units 17:58 17:58 17:58 WBC 10.3 (4.8-10.8) X10*3/uL RBC 4.58 L (4.60-5.80) X10*6/uL Hgb 14.3 (14.0-18.0) g/dl Hct 42.3 (42.0-52.0) % MCV 92.4 (80.0-98.0) fL MCH 31.2 (27.0-33.0) pg MCHC 33.8 (31.0-36.0) g/dl RDW 12.9 (11.0-16.0) % Plt Count 249 (160-400) X10*3/uL MPV 9.7 (9.4-12.4) fL Immature Gran % (Auto) 0.3 (0.0-0.4) % Neut % (Auto) 56.9 (45-73) % Lymph % (Auto) 26.7 (20-40) % [place] % (Auto) 10.0 (2-11) % Eos % (Auto) 5.5 H (0-4) % Baso % (Auto) 0.6 (0-2) % Lymph # (Auto) 2.8 (1.2-4.9) X10*3/uL [place] # (Auto) 1.0 (0.1-1.2) X10*3/uL Eos # (Auto) 0.6 H (0.0-0.4) X10*3/uL Baso # (Auto) 0.1 (0.0-0.2) X10*3/uL Abs Immat Gran (auto) 0.03 (0.00-0.03) X10*3/uL Absolute Neuts (auto) 5.9 (2.0-8.3) x10*3/uL Absolute Nucleated RBC 0.000 (0.0-0.012) X10*3/uL Nucleated RBC % (auto) 0.0 (0.0-0.2) /100WBC PT 11.5 (11.1-13.3) SEC INR 0.9 (0.9-1.1) Sodium 140 (135-145) mmol/L Potassium 4.4 (3.3-5.1) mmol/L Chloride 109 H (96-108) mmol/L Carbon Dioxide 24 (22-29) mmol/L Anion Gap 11 L (12-20) BUN 19 H (9-16) mg/dL Creatinine 0.96 (0.5-1.4) mg/dL Estim Creat Clear Calc 57.1 Estimated GFR > 60 Random Glucose 98 (60-115) mg/dL Calcium 9.5 D (8.4-10.2) mg/dL Independent Interpretation I performed an independent interpretation of an: CT Scan Radiology Impression Discussion of test interpretation with radiology: I have reviewed the radiologist's reading. Independent Historian Clinical information obtained from an independent historian. History obtained from or confirmed by: Other (Daughter) Discharge Plan Discharge Clinical Impression: Laceration of scalp, Head injury Patient Disposition: Home, Self-Care Instructions: Laceration (ED), Head Injury (ED), Staple Care (ED) Additional Instructions: return to the ED immediately for any headache, nausea, vomit, altered mental status, lethargy, photophobia, chest pain, shortness of breath, rectal bleeding, vomiting blood, bloody urine, or any other concerning symptoms. Please follow up with primary care provider. Nancy should be removed in 10 days. You were given copy of images. Prescriptions: No Action lisinopril 10 mg tablet 10 mg PO DAILY tamsulosin 0.4 mg capsule 0.4 mg PO BEDTIME omeprazole 20 mg capsule,delayed release(DR/EC) 20 mg PO DAILY Interventions: ED Discharge Assessment Last Done: 11/09/22 20:28 Discharge Date/Time: 11/09/22 20:29 Print Language: Greek
[2022-11-09 18:05] LABS: MANUAL DIFF FLAG NO
[2022-11-09 18:06] LABS: Basophils Absolute Auto 0.1 X10*3/uL (0.0-0.2); Basophils Percent Auto 0.6 % (0-2); Eosinophils Absolute Auto 0.6 X10*3/uL (0.0-0.4); Eosinophils Percent Auto 5.5 % (0-4); Hematocrit 42.3 % (42.0-52.0); Hemoglobin 14.3 g/dl (14.0-18.0); Imm Gran Abs Auto 0.03 X10*3/uL (0.00-0.03); Imm Gran Pct Auto 0.3 % (0.0-0.4); Lymphocytes Absolute Auto 2.8 X10*3/uL (1.2-4.9); Lymphocytes Percent Auto 26.7 % (20-40); Mean Corpuscular HGB Conc 33.8 g/dl (31.0-36.0); Mean Corpuscular Hemoglobin 31.2 pg (27.0-33.0); Mean Corpuscular Volume 92.4 fL (80.0-98.0); Mean Platelet Volume 9.7 fL (9.4-12.4); Neutrophils Absolute Auto 5.9 x10*3/uL (2.0-8.3); Neutrophils Percent Auto 56.9 % (45-73); Platelet Count 249 X10*3/uL (160-400); Red Blood Count 4.58 X10*6/uL (4.60-5.80); Red Cell Distribution Width 12.9 % (11.0-16.0); White Blood Count 10.3 X10*3/uL (4.8-10.8)
[2022-11-09 18:09] VITALS: BP 148/78; PULSE 60; RESP 16; O2SAT 94
[2022-11-09 18:18] LABS: Anion Gap 11 (12-20); Blood Urea Nitrogen 19 mg/dL (9-16); Calcium 9.5 mg/dL (8.4-10.2); Carbon Dioxide 24 mmol/L (22-29); Chloride 109 mmol/L (96-108); Creatinine Clr Calc Pharmacy 57.1; Estimated Glomerular Filt Rate > 60; Glucose Random 98 mg/dL (60-115); Potassium 4.4 mmol/L (3.3-5.1); Sodium 140 mmol/L (135-145)
[2022-11-09] MEDS: Diphth,Pertus(ACell),Tet Adult 0.5 ML SYRINGE IM (18:25)
[2022-11-09 18:59] LABS: INTERNATIONAL NORM RATIO 0.9 (0.9-1.1); Prothrombin Time 11.5 SEC (11.1-13.3)
[2022-11-09 19:26] VITALS: BP 156/79; PULSE 52; RESP 16; TEMP 36.6; O2SAT 98
--- NOTE | 2022-11-09 20:20 | MHC.EDTECH ---
NON STICK DRESSING APPLY ON PATIENT LAC ON TOP OF PATIENT HEAD .
== END 2022-11-09 20:29 | disposition home or self-care (01) ==
PROVIDERS: Physician Assistant; Emergency Provider Emergency Medicine; PCP Internal Medicine
DX: S09.90XA Unspecified injury of head, initial encounter (principal); S01.01XA Laceration without foreign body of scalp, initial encounter; S80.212A Abrasion, left knee, initial encounter; S80.211A Abrasion, right knee, initial encounter; W01.198A Fall on same level from slipping, tripping and stumbling with subsequent striking against other object, initial encounter; Y93.9 Activity, unspecified; Y92.89 Other specified places as the place of occurrence of the external cause; Y99.9 Unspecified external cause status; Z79.02 Long term (current) use of antithrombotics/antiplatelets; Z79.899 Other long term (current) drug therapy
CPT/HCPCS: 12002; 36415; 70450; 72125; 80048; 85025; 85610; 90471; 90715; 99284

== ENCOUNTER 2022-11-10 09:17 | Emergency (ER) | payer MEDICARE, OTHER, SELFPAY ==
[2022-11-10 09:29] VITALS: BP 149/73; PULSE 57; RESP 19; TEMP 36.6; O2SAT 98; BMI 27.5
--- NOTE | 2022-11-10 09:55 | ED.WOUNDLAC ---
HPI - Wound/Laceration General Chief Complaint: Wound/Laceration Stated Complaint: wound check, here last night Time Seen by Provider: 11/10/22 09:39 Source: patient, family and old records reviewed Mode of arrival: ambulatory Limitations: no limitations History of Present Illness HPI narrative: 87-year-old male presents to the ER for evaluation of his head wound that he sustained yesterday. Patient was seen here last night after tripping and falling on some steps, hitting his head on the ground. He sustained a large laceration to the top of his head requiring 12 nancy for closure. He states that he bled through the dressing that was placed. he is concerned the wound was not adequately cleaned prior to being discharged last night. He reports some ongoing oozing. He is on baby aspirin but no full anticoagulation. He had CT of his head and neck yesterday that were unremarkable. He denies any headache. Onset (ago): day(s) (1) Location: scalp Place: home Patient tetanus UTD: Yes Context: accidental Associated symptoms: other ( Ongoing bleeding) Treatments prior to arrival: bandage Related Data Home Medications Medication Instructions Recorded Confirmed lisinopril 10 mg tablet 10 mg PO DAILY 04/03/20 08/03/22 omeprazole 20 mg capsule,delayed 20 mg PO DAILY 04/03/20 08/03/22 release tamsulosin 0.4 mg capsule 0.4 mg PO BEDTIME 04/03/20 08/03/22 Allergies Allergy/AdvReac Type Severity Reaction Status Date / Time ceftriaxone [CEFTRIAXONE] Allergy Unknown HIVES/RASH Verified 11/10/22 09:28 mold [MOLD] Allergy Unknown ITCHIY Verified 11/10/22 09:28 THROAT,STUFFY HEAD Review of Systems Review of Systems: Yes all other systems are reviewed and are negative [facility] Social History Social History Alcohol intake: former Patient Tobacco Use Status: Never used Tobacco Advance Directives: Yes Advance Directives Information Provided: No Advance Directives on File: No Current occupation: right hand dominant Physical Exam Vital Signs: Vital Signs: Last Vital Signs Temp 98 F 11/10/22 09:29 Pulse 57 11/10/22 09:29 Resp 19 11/10/22 09:29 BP 149/73 H 11/10/22 09:29 Pulse Ox 98 11/10/22 09:29 BMI result Body Mass Index 27.5 Appearance: Alert. Oriented X3. No acute distress. HEENT: there is a large approximately 10 cm linear laceration of the top of the scalp with [address] Significant dried blood around the wound with some serous drainage. small surrounding hematoma and ecchymosis. CVS: Normal heart rate and rhythm. Pulses normal. Respiratory: No respiratory distress. Skin: Skin warm and dry. Normal skin color. Normal skin turgor. No rashes. Extremities: normal to inspection, no joing swelling. Neuro: Oriented X 3. No motor deficit. No sensory deficit. normal speech and cognition, steady gait Medical Decision Making Medical Decision Making MDM Narrative: seen here last night for a fall resulting in a scalp laceration, requiring 12 nancy for closure who presents back to the ER for wound evaluation and ongoing bleeding. Local wound care performed with expression of a small amount of blood from a surrounding hematoma. 4 additional nancy were placed for additional wound closure In addition to multiple Steri-Strips for reinforcement. Patient was counseled on appropriate wound care and expected healing process, along with return precautions. Compression dressing applied. Stable for discharge home. Differential Diagnosis Differential Diagnoses: The differential diagnosis associated with the presentation includes delayed wound healing, wound infection, inadequate wound approximation, seroma, hematoma Admission/Observation Consideration of admission/observation: Escalation of care including admission/observation considered Return visit for bleeding head wound in an elderly male on aspirin, considered observation External Record Review External record reviewed: Prior outpatient labs and Primary care record Procedures Laceration Laceration 1: Site: scalp Size (cm): 10 Description: linear and irregular Depth: simple, single layer Pre-repair: wound explored and irrigated extensively Skin layer closed with: other (nancy, 4 additional to make a total of 16) Discharge Plan Discharge Clinical Impression: Laceration Patient Disposition: Home, Self-Care Instructions: Head Laceration (ED) Additional Instructions: Do not get wet for 24 hours, after that you can briefly wash with soap and water then pat dry. Keep wound clean and covered today, change the gauze as needed Apply ice several times per day. Do not submerge in water, no swimming. If you develop signs of infection including increased pain, swelling, redness or drainage of pus come back to the ER for further evaluation. Prescriptions: No Action lisinopril 10 mg tablet 10 mg PO DAILY tamsulosin 0.4 mg capsule 0.4 mg PO BEDTIME omeprazole 20 mg capsule,delayed release(DR/EC) 20 mg PO DAILY
== END 2022-11-10 10:36 | disposition home or self-care (01) ==
PROVIDERS: Emergency Provider Emergency Medicine; PCP Internal Medicine
DX: S01.01XA Laceration without foreign body of scalp, initial encounter (principal); R51.9 Headache, unspecified; W01.10XA Fall on same level from slipping, tripping and stumbling with subsequent striking against unspecified object, initial encounter; Y93.9 Activity, unspecified; Y92.9 Unspecified place or not applicable; Y99.9 Unspecified external cause status; Z79.899 Other long term (current) drug therapy
CPT/HCPCS: 12004; 99282; 99284

== ENCOUNTER 2022-11-18 07:35 | Emergency (ER) | payer MEDICARE, OTHER, SELFPAY ==
[2022-11-18 07:42] VITALS: BP 141/82; PULSE 64; RESP 12; O2SAT 96; BMI 27.5
--- NOTE | 2022-11-18 07:57 | ED.WOUNDLAC ---
HPI - Wound/Laceration General Chief Complaint: Wound/Laceration Stated Complaint: nancy removed Time Seen by Provider: 11/18/22 07:53 Source: patient Mode of arrival: ambulatory Limitations: no limitations History of Present Illness HPI narrative: Patient presents for staple removal. He denies any fevers, chills, redness, swelling, purulence or pain. Denies any headache, nausea vomiting. Otherwise he has no acute complaints. Related Data Home Medications Medication Instructions Recorded Confirmed lisinopril 10 mg tablet 10 mg PO DAILY 04/03/20 08/03/22 omeprazole 20 mg capsule,delayed 20 mg PO DAILY 04/03/20 08/03/22 release tamsulosin 0.4 mg capsule 0.4 mg PO BEDTIME 04/03/20 08/03/22 Allergies Allergy/AdvReac Type Severity Reaction Status Date / Time ceftriaxone [CEFTRIAXONE] Allergy Unknown HIVES/RASH Verified 11/10/22 09:28 mold [MOLD] Allergy Unknown ITCHIY Verified 11/10/22 09:28 THROAT,STUFFY HEAD Review of Systems Review of Systems: CONSTITUTIONAL: Denies weight loss, fever and chills. HEENT: Denies changes in vision and hearing. RESPIRATORY: Denies SOB and cough. CV: Denies palpitations no CP. GI: Denies abdominal pain, nausea, vomiting and diarrhea. : Denies dysuria and urinary frequency. MSK: Denies myalgia and joint pain. SKIN: Denies rash and pruritus. NEUROLOGICAL: Denies headache and syncope. PSYCHIATRIC: Denies recent changes in mood. Denies anxiety and depression. All other ROS are negative unless in HPI PMFSH Social History Social History Alcohol intake: former Patient Tobacco Use Status: Never used Tobacco Current occupation: right hand dominant Physical Exam Vital Signs: Vital Signs: Last Vital Signs Pulse 64 11/18/22 07:42 Resp 12 11/18/22 07:42 BP 141/82 H 11/18/22 07:42 Pulse Ox 96 11/18/22 07:42 O2 Del Method Room Air 11/18/22 07:42 BMI result Body Mass Index 27.5 GEN: Well developed, no acute distress, alert, oriented HEENT: Normocephalic, atraumatic, normal external ears, nose appears normal Eyes: Normal to appearance Neck: Supple, no lymphadenopathy Respiratory: Talks in complete sentences, no respiratory distress Extremities: No clubbing cyanosis or edema Neurologic: No focal neurologic deficits, cranial nerves 2-12 intact, gait normal Skin: No rash Large linear vertical forehead laceration healing, no evidence cellulitis, purulent drainage for abscess. Nancy removed Medical Decision Making Medical Decision Making MDM Narrative: patient has no evidence of wound infection. [place] removed. Discharge instructions were discussed with the patient. Patient will monitor for any signs or symptoms of infection. Discharge Plan Discharge Clinical Impression: Laceration, Encounter for removal of nancy Patient Disposition: Home, Self-Care Instructions: Stitches Removal (ED) Prescriptions: No Action lisinopril 10 mg tablet 10 mg PO DAILY tamsulosin 0.4 mg capsule 0.4 mg PO BEDTIME omeprazole 20 mg capsule,delayed release(DR/EC) 20 mg PO DAILY Referrals: Yaya Pritchett MD [Primary Care Provider] -
--- NOTE | 2022-11-18 08:02 | PC.NURSE ---
Pt status post fall 10 days ago. In for staple removal on top of head. Wound clean, dry, edges approximated. Denied pain. VSS.
--- NOTE | 2022-11-18 08:54 | PC.NURSE ---
Medically cleared for discharge. Discharge reviewed with pt. Denies pain.
== END 2022-11-18 08:56 | disposition home or self-care (01) ==
PROVIDERS: Emergency Provider Emergency Medicine; PCP Internal Medicine
DX: Z48.02 Encounter for removal of sutures (principal)
CPT/HCPCS: 99283

== ENCOUNTER 2023-01-29 08:40 | Outpatient (REF) | payer MEDICARE, OTHER, SELFPAY ==
[2023-02-01 10:43] LABS: Free Prostate Spec Ag 1.7 ng/mL; Percent Free Prostate Spec Ag 20 % (calc) (>25); Prostate Specific Ag Total 8.6 ng/mL (< OR = 4.0)
== END 2023-01-29 08:41 | disposition home or self-care (01) ==
LOC: HO.LAB 08:40
PROVIDERS: PCP Internal Medicine; Visit Provider Urology
DX: N40.1 Benign prostatic hyperplasia with lower urinary tract symptoms (principal); N13.8 Other obstructive and reflux uropathy; Z12.5 Encounter for screening for malignant neoplasm of prostate
CPT/HCPCS: 36415; 84153; 84154

== ENCOUNTER 2023-02-03 08:41 | Outpatient (AMB) | payer MEDICARE, OTHER, SELFPAY ==
--- NOTE | 2023-02-03 08:47 | MHC.OFFVIS ---
Intake Intake Visit Reasons: 6M PSA(pending) Intake Note: Patient is Present for Follow Up PSA/PVR Urology Medication: No longer on tamsulosin Antibiotic Allergies: None Blood Thinners: None PVR: 30 Compliants: no complaints Allergies ceftriaxone [CEFTRIAXONE] Allergy (Unknown, Verified 02/03/23 08:48) HIVES/RASH mold [MOLD] Allergy (Unknown, Verified 02/03/23 08:48) ITCHIY THROAT,STUFFY HEAD HPI HPI Comments History of Present Illness Details Alvin is a very pleasant male. He is a patient of Dr. Roque. He is seen for the following urologic conditions. - lower urinary tract symptoms - elevated PSA PSA remains elevated but free PSA high CARINA with small nodule right base Continue to follow every 6 months Remains on tamsulosin for control Prior treatment with finasteride had decreased PSA substantially Talk about his mother who made it to 89 living in her own house Lower Urinary Tract Symptoms Current visit is for further evaluation of, lower urinary tract symptoms, predominate obstructive symptoms. Prior treatments include 09/07 , GreenLight laser of the prostate. Prostate Symptom Score 2/20 , Moderate (9-19), Bother 3. Symptoms include 2/20 , incomplete emptying, weak stream, nocturia (>2), and are progressing. Prior Prostate Score unknown. PSA 10/07 5 - chronic inflammation, 04/10 5.4, 12/09 6.8, 07/10 4.0, 08/10 7.8, 02/10 8.6 20% Prostate volume 50+gm. Testing at next visit will include bladder scan. Treatment plan 6 months with PSA PFS Social History Alcohol intake: former Patient Tobacco Use Status: Never used Tobacco Current occupation: right hand dominant Review of Systems Const Denies chills and Denies fever(s) Card Reports no additional complaints and Denies syncope Resp Denies cough GI Denies abdominal pain and Denies heartburn Reports as per HPI and Denies change in libido Neuro Denies syncope Psych Denies change in libido Endo Denies change in libido Physical Exam Const General: cooperative, healthy appearing, comfortable and no acute distress Orientation/consciousness: patient oriented x3 HEENT Face and sinus: Yes normal facial exam Mouth: moist mucous membranes Neck Neck: Yes normal visual inspection, Yes full ROM and Yes trachea midline Chest Chest palpation & inspection: normal inspection of the chest Resp Effort & Inspection: normal respiratory effort, able to speak in complete sentences and no respiratory distress GI Inspection: Yes normal to inspection Back/Spine/Pelvis Cervical Spine: normal cervical lordosis Thoracic/Lumbar Spine: thoracic and lumbar spine normal to inspection Skin General skin exam: no rashes or lesions noted Neuro General: patient oriented x3, gait normal, tone normal and moves all extremities Extrem General: Yes normal to inspection and Yes capillary refill normal Office Procedures Post Void Residual Post Residual Void Post Void Residual (PVR): 30 48254-[place] Void Residual by ultrasound Results AMB Urinalysis, Automated UA Leukoctes 70 [place]/uL Last Edit by NEHAL Vasquez on 02/03/23 09:02 UA Nitrite Negative Last Edit by Freida Myers A on 02/03/23 09:02 UA Urobilinogen 0.2 mg/dL Last Edit by Freida Myers A on 02/03/23 09:02 UA Protein 15 mg/dL Last Edit by Freida Myers [facility] on 02/03/23 09:02 UA pH 5.0 Last Edit by Freida Myers [facility] on 02/03/23 09:02 UA Blood 10 Oni/uL Last Edit by Freida Myers [facility] on 02/03/23 09:02 UA Specific [place] 1.025 Last Edit by Freida Myers A on 02/03/23 09:02 UA Ketone Negative Last Edit by Freida Myers [facility] on 02/03/23 09:02 UA Bilirubin 0 mg/dL Last Edit by Freida Myers [facility] on 02/03/23 09:02 UA Glucose 0 mg/dL Last Edit by Freida Myers [facility] on 02/03/23 09:02 Results Reviewed Results Reviewed: Laboratory Last Values Urine pH (Auto) 5.0 02/03/23 08:44 Specific [place] (Auto) 1.025 02/03/23 08:44 Urine Protein (Auto) 15 mg/dL 02/03/23 08:44 Glucose (UA)(Auto) 0 mg/dL 02/03/23 08:44 Urine Ketones (Auto) Negative 02/03/23 08:44 Urine Blood (Auto) 10 Oni/uL 02/03/23 08:44 Urine Nitrite (Auto) Negative 02/03/23 08:44 Urine Bilirubin (Auto) 0 mg/dL 02/03/23 08:44 Urine Urobilinogen (Auto) 0.2 mg/dL 02/03/23 08:44 Leukocyte Esterase (Auto) 70 [place]/uL 02/03/23 08:44 Assessment & Plan Assessment & Plan (1) Elevated PSA: Code(s): R97.20 - Elevated prostate specific antigen [PSA] (2) BPH w urinary obs/LUTS: Code(s): N40.1 - Benign prostatic hyperplasia with lower urinary tract symptoms; N13.8 - Other obstructive and reflux uropathy Plan Six month follow-up Orders: Orders AMB Post Void Residual by ultrasound Today N13.8 - Other obstructive and reflux uropathy, N40.1 - Benign prostatic hyperplasia with lower urinary tract symptoms AMB Urinalysis Automated Today Z13.9 - Encounter for screening, unspecified PSA,Total (Free>4and<10) 6 Months N13.8 - Other obstructive and reflux uropathy, N40.1 - Benign prostatic hyperplasia with lower urinary tract symptoms Patient Instructions: Imaging studies, laboratory and physical exam results were discussed and reviewed in detail. No major barriers to patient understanding were identified. An opportunity to ask questions regarding the treatment plan was provided. All questions were answered. The patient expressed understanding and agreement with the above treatment plan. The patient is aware they should contact our office by phone for worsening of their current condition or the appearance of new urologic symptoms. Compliance is encouraged with any medications and followup testing that is ordered. It is a privilege to participate in the urologic care of your patient. If you have any questions or concerns regarding treatment for the above conditions, or other urologic issues, please do not hesitate to contact me. The office telephone contact is [phone]. This note is constructed using voice recognition software. While every effort has been made to ensure accuracy poultry feed supervisor errors may have been included. Yours sincerely, Dr Jose Ramon Peralta MD, [facility] - Urology Providers of Expert, Compassionate Care for the Genitourinary System Coding Level of Care Code Est Pt Level 3 (33764) Diagnoses Elevated PSA R97.20 BPH w urinary obs/LUTS N40.1; N13.8 CPT Codes Post Residual Void - PVR CPT Code: 29014-Barb Void Residual by ultrasound ([id number])
== END 2023-02-03 09:20 | disposition home or self-care (01) ==
PROVIDERS: Visit Provider Urology
DX: R97.20 Elevated prostate specific antigen [PSA] (principal); N40.1 Benign prostatic hyperplasia with lower urinary tract symptoms; N13.8 Other obstructive and reflux uropathy; Z13.9 Encounter for screening, unspecified
CPT/HCPCS: 99213

== ENCOUNTER → 2023-02-03 08:41 | Outpatient (BNVA) | payer MEDICARE, OTHER, SELFPAY | PROVIDERS: Visit Provider Urology | DX: N40.1 Benign prostatic hyperplasia with lower urinary tract symptoms (principal); N13.8 Other obstructive and reflux uropathy; R97.20 Elevated prostate specific antigen [PSA] | CPT/HCPCS: 51798; 81003; 99212 ==

== ENCOUNTER 2023-05-11 10:20 | Outpatient (REF) | payer SELFPAY | END 2023-05-11 10:21 | disposition home or self-care (01) | LOC: HO.HAP 10:20 | PROVIDERS: Visit Provider Internal Medicine | DX: Z46.1 Encounter for fitting and adjustment of hearing aid (principal); H90.3 Sensorineural hearing loss, bilateral | CPT/HCPCS: V5267 ==

== ENCOUNTER 2023-05-29 03:43 | Emergency (ER) | payer MEDICARE, OTHER, SELFPAY ==
[2023-05-29 03:44] VITALS: BP 129/84; PULSE 71; RESP 18; TEMP 36.8; O2SAT 97; BMI 28.1
--- NOTE | 2023-05-29 04:36 | ED.GENADULT ---
HPI - General Adult General Chief complaint: General Medical Stated complaint: hearing aid stuck in ear Time Seen by Provider: 05/29/23 04:36 Source: patient Mode of arrival: ambulatory Limitations: no limitations History of Present Illness HPI narrative: 88-year-old male came in for evaluation after the rubber coverage of the hearing aid stuck in the patient's right ear. Complaining of right ear pressure. Related Data Home Medications Medication Instructions Recorded Confirmed lisinopril 20 mg tablet 20 mg PO DAILY 02/03/23 Allergies Allergy/AdvReac Type Severity Reaction Status Date / Time ceftriaxone [CEFTRIAXONE] Allergy Unknown HIVES/RASH Verified 02/03/23 08:48 mold [MOLD] Allergy Unknown ITCHIY Verified 02/03/23 08:48 THROAT,STUFFY HEAD Review of Systems Review of Systems: All other systems are reviewed and are negative Constitutional: Reports as per HPI and Reports no additional constitutional complaints Eyes: Reports as per HPI and Reports no additional eye complaints Reports system reviewed and no additional complaints, except as documented Cardiovascular: Reports as per HPI and Reports no additional cardiovascular complaints Respiratory: Reports as per HPI and Reports no additional respiratory complaints Gastrointestinal: Reports as per HPI and Reports no additional gastrointestinal complaints Genitourinary: Reports no additional female genitourinary complaints Musculoskeletal: Reports no additional musculoskeletal complaints Skin/Breast: Reports system reviewed and no additional complaints, except as docu Psychiatric: Reports no additional psychiatric complaints Endocrine: Reports no additional endocrine complaints Hematologic/Lymphatic: Reports no additional hematologic/lymphatic complaints Allergic/Immunologic: Reports no additional allergic/immunologic complaints Reports system reviewed and no additional complaints, except as documented and Reports Abnormal speech present [facility] Social History Social History Alcohol intake: former Patient Tobacco Use Status: Never used Tobacco Smoked in Last 30 Days: No Advance Directives: No Advance Directives Information Provided: No Current occupation: right hand dominant Physical Exam ED Vital Signs: Vital Signs - 24 hr 05/29/23 03:44 05/29/23 04:37 Temperature 98.2 F 97.4 F Pulse Rate 71 57 Respiratory Rate 18 16 Blood Pressure 129/84 144/73 H Pulse Oximetry 97 96 Oxygen Delivery Method Room Air Room Air BMI result Body Mass Index 28.1 Vital signs have been reviewed and appear to be correct. Blood pressure elevated. Heart rate normal. Respiratory rate normal. Temperature normal. Oxygen saturation normal. Appearance: Alert. Oriented X3. No acute distress. Head: Normal external exam. Normocephalic. Atraumatic. No Black signs noted. No raccoon eyes noted Eyes: PERRLA. EOMI. Conjunctiva and sclera normal. Eyelids normal. ENT: TM's Normal. 1 x 1 cm of alexandra rubbery material of the hearing and stuck in and of the auditory canal. Neck: Normal inspection. Neck supple. FROM. No adenopathy. Thyroid Normal. No meningeal signs. No neck mass noted. CVS: Normal heart rate and rhythm. Heart sound normal. No murmurs noted. Pulses normal throughout. Respiratory: No respiratory distress. Painless inspiration. Breath sounds normal. No wheezes/rales/rhonchi noted. Chest nontender. No accessory muscle usage noted or decreased air movement noted. Abdomen: Soft and nontender. Bowel sounds normal in all 4 quadrants. No distention noted. No organomegaly noted. No visible injury noted. Back: No CVA tenderness. Full range of motion noted. Skin: Skin warm and dry. Normal skin color. Normal skin turgor. No rashes/lesions/lacerations noted. Extremities: No lower extremity edema. Extremities exhibit normal range of motion. Extremities nontender. Neuro: Oriented X 3. Cranial nerve exam: II-XII are grossly intact No motor deficit. No sensory deficit. Reflexes normal. Course Reevaluation(s) Reevaluation #1: S/p right ear foreign body removal. Time: 04:41 Procedures Ear Wax Removal Right Ear: Results: Re-examined: other (Part of the hearing aid stuck in the auditory canal was removed) TM Examination: TM(s) erythematous Ear Canal Exam: atraumatic Patient Tolerated Procedure: well Complications: no problems Technique: ear canal irrigated Medical Decision Making Differential Diagnosis Differential Diagnoses: The differential diagnosis associated with the presentation includes (Foreign body retention in the right external canal, TM perforation, om, otitis externa.) Admission/Observation Consideration of admission/observation: Escalation of care including admission/observation considered Discharge Plan Discharge Clinical Impression: Acute foreign body of right ear Patient Disposition: Home, Self-Care Instructions: Ear Foreign Body (ED) Prescriptions: No Action lisinopril 20 mg tablet 20 mg PO DAILY
[2023-05-29 04:37] VITALS: BP 144/73; PULSE 57; RESP 16; TEMP 36.3; O2SAT 96
== END 2023-05-29 05:04 | disposition home or self-care (01) ==
PROVIDERS: Emergency Provider Emergency Medicine; PCP Internal Medicine
DX: T16.1XXA Foreign body in right ear, initial encounter (principal); H61.21 Impacted cerumen, right ear; W44.G1XA Audio device entering into or through a natural orifice, initial encounter; Y93.9 Activity, unspecified; Y92.9 Unspecified place or not applicable; Y99.8 Other external cause status
CPT/HCPCS: 69200; 69209; 99284

== ENCOUNTER 2023-07-27 10:45 | Outpatient (REF) | payer MEDICARE, OTHER, SELFPAY ==
[2023-07-27 12:10] LABS: PSA,Total (Free>4and<10) 9.25 ng/mL (0.00-4.00)
[2023-07-28 13:33] LABS: Free Prostate Spec Ag 1.9 ng/mL; Percent Free Prostate Spec Ag 19 % (calc) (>25); Prostate Specific Ag Total 9.8 ng/mL (< OR = 4.0)
== END 2023-07-27 10:46 | disposition home or self-care (01) ==
LOC: HO.LAB 10:45
PROVIDERS: Visit Provider Urology
DX: N40.1 Benign prostatic hyperplasia with lower urinary tract symptoms (principal); N13.8 Other obstructive and reflux uropathy; Z12.5 Encounter for screening for malignant neoplasm of prostate
CPT/HCPCS: 36415; 84153; 84154

== ENCOUNTER 2023-07-28 00:27 | Emergency (ER) | payer MEDICARE, OTHER, SELFPAY ==
--- NOTE | 2023-07-28 01:19 | PC.NURSE ---
Left immediately after arriving to the ED, prior to being triaged.
== END 2023-07-28 01:20 | disposition left against medical advice (07) ==
PROVIDERS: Emergency Provider Emergency Medicine
DX: H92.03 Otalgia, bilateral (principal)

== ENCOUNTER 2023-08-04 09:20 | Outpatient (AMB) | payer MEDICARE, OTHER, SELFPAY ==
--- NOTE | 2023-08-04 09:27 | A.OFFVIS_ITS ---
Intake Visit Reasons: 6M PSA(set) Intake Note: Patient is Present for PVR/PSA Urology Med: None Antibiotic Allergy:None Blood Thinner: None Last PVR: 30 Allergies ceftriaxone [CEFTRIAXONE] Allergy (Unknown, Verified 08/04/23 09:30) HIVES/RASH mold [MOLD] Allergy (Unknown, Verified 08/04/23 09:30) ITCHIY THROAT,STUFFY HEAD HPI Comments Details: Alvin is a very pleasant male. He is a patient of Dr. Roque. He is seen for the following urologic conditions. - lower urinary tract symptoms - elevated PSA PSA remains elevated but free PSA high Restart finasteride Had episode of UTI in went and treated with Levaquin CARINA with small nodule right base Continue to follow every 6 months Lower Urinary Tract Symptoms Current visit is for further evaluation of, lower urinary tract symptoms, predominate obstructive symptoms. Prior treatments include 09/07 , GreenLight laser of the prostate. Prostate Symptom Score 2/20 , Moderate (9-19), Bother 3. Symptoms include 2/20 , incomplete emptying, weak stream, nocturia (>2), and are progressing. Prior Prostate Score unknown. PSA 10/07 5 - chronic inflammation, 04/10 5.4, 12/09 6.8, 07/10 4.0, 08/10 7.8, 02/10 8.6 20%, 08/11 9.8 18% Prostate volume 50+gm. Testing at next visit will include bladder scan. Treatment plan 6 months with PSA PFS Social History Alcohol intake: former Patient Tobacco Use Status: Never used Tobacco Current occupation: right hand dominant Review of Systems Const Denies chills and Denies fever(s) Card Reports no additional complaints and Denies syncope Resp Denies cough GI Denies abdominal pain and Denies heartburn Reports as per HPI and Denies change in libido Neuro Denies syncope Psych Denies change in libido Endo Denies change in libido Physical Exam Const General: cooperative, healthy appearing, comfortable and no acute distress Orientation/consciousness: patient oriented x3 HEENT Face and sinus: Yes normal facial exam Mouth: moist mucous membranes Neck Neck: Yes normal visual inspection, Yes full ROM and Yes trachea midline Chest Chest palpation & inspection: normal inspection of the chest Resp Effort & Inspection: normal respiratory effort, able to speak in complete sentences and no respiratory distress GI Inspection: Yes normal to inspection Back/Spine/Pelvis Cervical Spine: normal cervical lordosis Thoracic/Lumbar Spine: thoracic and lumbar spine normal to inspection Skin General skin exam: no rashes or lesions noted Neuro General: patient oriented x3, gait normal, tone normal and moves all extremities Extrem General: Yes normal to inspection and Yes capillary refill normal Assessment & Plan Assessment & Plan (1) Elevated PSA: Code(s): R97.20 - Elevated prostate specific antigen [PSA] Category: Medical (2) BPH w urinary obs/LUTS: Code(s): N40.1 - Benign prostatic hyperplasia with lower urinary tract symptoms; N13.8 - Other obstructive and reflux uropathy Category: Medical (3) Nocturia: Code(s): R35.1 - Nocturia Category: Medical Plan Six-month follow-up Orders: Orders AMB Post Void Residual by ultrasound Today N13.8 - Other obstructive and reflux uropathy, N40.1 - Benign prostatic hyperplasia with lower urinary tract symptoms PSA,Total (Free>4and<10) 6 Months R97.20 - Elevated prostate specific antigen [PSA] Medications: New finasteride 5 mg PO DAILY 90 days 90 tabs 1RF N13.8 - Other obstructive and reflux uropathy, N40.1 - Benign prostatic hyperplasia with lower urinary tract symptoms, R33.9 - Retention of urine, unspecified, R97.20 - Elevated prostate specific antigen [PSA] Patient Instructions: Imaging studies, laboratory and physical exam results were discussed and reviewed in detail. No major barriers to patient understanding were identified. An opportunity to ask questions regarding the treatment plan was provided. All questions were answered. The patient expressed understanding and agreement with the above treatment plan. The patient is aware they should contact our office by phone for worsening of their current condition or the appearance of new urologic symptoms. Compliance is encouraged with any medications and followup testing that is ordered. It is a privilege to participate in the urologic care of your patient. If you have any questions or concerns regarding treatment for the above conditions, or other urologic issues, please do not hesitate to contact me. The office telephone contact is [phone]. This note is constructed using voice recognition software. While every effort has been made to ensure accuracy service manager errors may have been included. Yours sincerely, Dr Jose Ramon Peralta MD, [facility] - Urology Providers of Expert, Compassionate Care for the Genitourinary System Coding Level of Care Code Est Pt Level 4 (46064) Diagnoses Elevated PSA R97.20 BPH w urinary obs/LUTS N40.1; N13.8 Nocturia R35.1
== END 2023-08-04 10:22 | disposition home or self-care (01) ==
PROVIDERS: PCP Internal Medicine; Visit Provider Urology
DX: R97.20 Elevated prostate specific antigen [PSA] (principal); N40.1 Benign prostatic hyperplasia with lower urinary tract symptoms; N13.8 Other obstructive and reflux uropathy; R35.1 Nocturia
CPT/HCPCS: 99214

== ENCOUNTER → 2023-08-04 09:20 | Outpatient (BNVA) | payer MEDICARE, OTHER, SELFPAY | PROVIDERS: PCP Internal Medicine; Visit Provider Urology | DX: R97.20 Elevated prostate specific antigen [PSA] (principal); N40.1 Benign prostatic hyperplasia with lower urinary tract symptoms; N13.8 Other obstructive and reflux uropathy; R35.1 Nocturia | CPT/HCPCS: 99212 ==

== ENCOUNTER 2023-08-17 11:50 | Emergency (ER) | payer MEDICARE, OTHER, SELFPAY ==
--- NOTE | 2023-08-17 11:54 | ED_ITS ---
HPI - General Adult General Chief complaint: Ear Problems Stated complaint: Object stuck in ear Time Seen by Provider: 08/17/23 12:03 Source: patient Mode of arrival: ambulatory Limitations: no limitations History of Present Illness ED Provider: Karel LUQUE HPI narrative: 88-year-old male presents with concerns he may have a piece of his hearing aid in his left ear not sure. It has been in for a day. Denies ringing in the ear, fever, chills, nausea, vomiting, ear pain, headache. Related Data Home Medications ?Medication ?Instructions ?Recorded ?Confirmed lisinopril 20 mg tablet 20 mg PO DAILY 02/03/23 hydrocortisone valerate 0.2 % appl topical BID 08/04/23 topical cream Previous Rx's ?Medication ?Instructions ?Recorded finasteride 5 mg tablet 5 mg PO DAILY 90 days #90 tabs 08/04/23 Allergies Allergy/AdvReac Type Severity Reaction Status Date / Time ceftriaxone [CEFTRIAXONE] Allergy Unknown HIVES/RASH Verified 08/17/23 11:56 mold [MOLD] Allergy Unknown ITCHIY Verified 08/17/23 11:56 THROAT,STUFFY HEAD Review of Systems 2 Review of Systems: Yes all other systems are reviewed and are negative PMFSH Past Medical History Attestation statement: The following information was validated with the patient. Source: old records reviewed and nursing notes reviewed Social History Social History Alcohol intake: former Patient Tobacco Use Status: Never used Tobacco Advance Directives: No Advance Directives Information Provided: Yes Current occupation: right hand dominant Physical Exam ED Vital Signs: Vital Signs - 24 hr 08/17/23 11:55 08/17/23 12:07 Temperature 98 F 98 F Pulse Rate 96 96 Respiratory Rate 16 16 Blood Pressure 171/96 H 171/96 H Pulse Oximetry 96 96 BMI result Body Mass Index 28.1 vss Appearance: Alert.? Oriented X3.? No acute distress.? Head: Normocephalic, atraumatic, no step-offs or deformities Eyes: Pupils equal, round and reactive to light.? ENT: Pharynx normal.?normal tm and ec b/l. No mastoid tenderness. No FB in ears b/l. Neck: Normal inspection.? Neck supple.? CVS: Normal heart rate and rhythm.? Pulses normal.? Respiratory: No respiratory distress.? Breath sounds normal.? Abdomen: Soft and nontender.? Skin: Skin warm and dry.? Normal skin color.? Normal skin turgor.? Extremities 5/5 strength to bilateral upper and lower extremities Neuro: Oriented X 3.? No motor deficit.? No sensory deficit. Medical Decision Making Medical Decision Making [facility] Narrative: 1155 88-year-old male presents with foreign body in left ear, small piece from her hearing aid in his ear. On exam normal tm and ec b/l. No mastoid tenderness. No FB in ears b/l. No Concerns for foreign body in left ear no signs of tympanic membrane perforation, otitis media, otitis externa, mastoiditis, hemotympanum. Plan removal Differential Diagnosis Differential Diagnoses: The differential diagnosis associated with the presentation includes No concerns for foreign body in left ear no signs of tympanic membrane perforation, otitis media, otitis externa, mastoiditis, hemotympanum. Admission/Observation Consideration of admission/observation: Escalation of care including admission/observation considered No indication External Record Review External record reviewed: Office record, Outpatient record and Prior outpatient labs Chronic Conditions Patient?s care impacted by: Other (BPH) Critical Care Time Critical Care Time Critical Care Time: No Discharge Plan Discharge Clinical Impression: Normal ear exam Patient Disposition: Home, Self-Care Instructions: Ear Foreign Body (ED) Additional Instructions: Take your medications as prescribed. If you were prescribed antibiotics today, it is important that you take your medication to their entirety, do not skip any doses, do not finish them early. Follow-up with your primary care provider this week. Return to the emergency department with new or worsening symptoms. Such as fevers, chills, chest pain, shortness of breath, nausea, vomiting, dizziness, headache, vision changes, lethargy In case of emergency call 911 Prescriptions: No Action hydrocortisone valerate 0.2 % cream topical BID finasteride 5 mg tablet 5 mg PO DAILY 90 Days Qty: 90 1RF lisinopril 20 mg tablet 20 mg PO DAILY Referrals: Jordan Mcleod [Physician] - 2 days Physician,David J [Primary Care Provider] - 2 days Interventions: ED Discharge Assessment Last Done: 08/17/23 12:07 Print Language: Kinyarwanda
[2023-08-17 11:55] VITALS: BP 171/96; PULSE 96; RESP 16; TEMP 36.6; O2SAT 96; BMI 28.1
[2023-08-17 12:07] VITALS: BP 171/96; PULSE 96; RESP 16; TEMP 36.6; O2SAT 96
== END 2023-08-17 12:13 | disposition home or self-care (01) ==
LOC: HO.ED 12:10
PROVIDERS: Emergency Provider Emergency Medicine
DX: Z03.89 Encounter for observation for other suspected diseases and conditions ruled out (principal); T16.2XXA Foreign body in left ear, initial encounter; W44.G1XA Audio device entering into or through a natural orifice, initial encounter; Y93.9 Activity, unspecified; Y92.9 Unspecified place or not applicable; Y99.9 Unspecified external cause status
CPT/HCPCS: 99282

== ENCOUNTER 2023-08-22 23:30 | Emergency (ER) | payer MEDICARE, OTHER, SELFPAY ==
--- NOTE | ~2023-08-22 | CT_ITS ---
EXAMINATION: CT ABDOMEN AND PELVIS WITH CONTRAST CLINICAL INFORMATION: Right lower quadrant pain COMPARISON: None available. TECHNIQUE: Multidetector volumetric images were obtained from the superior aspect of the liver through the pubic symphysis following administration 85 mL of Omnipaque 350 intravenous contrast. Sagittal and coronal reformatted images were obtained on the technologist's workstation. Oral contrast: No This CT examination was performed using dose optimization techniques as appropriate, variously including the following: *Automated exposure control *Adjustment of mA and/or kV according to patient size (this includes techniques or standardized protocols for targeted exams where dose is matched to indication/reason for exam; i.e. extremities or head) *Use of iterative reconstruction technique DLP: 686 mGy-cm FINDINGS: LUNG BASES: Mild dependent atelectasis. Coronary artery calcifications are present. LIVER, GALLBLADDER, AND BILIARY TREE: The liver demonstrates mild hypoattenuation suggesting steatosis. No focal hepatic lesion or biliary ductal dilatation is present. Cholelithiasis is present without appreciable wall thickening or surrounding inflammation. PANCREAS: Unremarkable. SPLEEN: Unremarkable. ADRENAL GLANDS: Unremarkable. KIDNEYS AND URETERS: Bilateral nephrograms are symmetric. No hydronephrosis or obstructing calculus identified. Right upper pole renal cyst measuring approximately 3.1 cm; no follow-up recommended. Cortical scarring noted in the mid left kidney. BLADDER: Mildly distended and grossly unremarkable. GASTROINTESTINAL TRACT: No evidence of bowel obstruction. No significant bowel wall thickening is seen. Mild colonic diverticulosis. The appendix is unremarkable. No free fluid or free air is seen. ABDOMINAL WALL: No significant hernia is appreciated. LYMPH NODES: Normal. VASCULAR: There is atherosclerotic calcification along the aorta and iliac arteries. PELVIC VISCERA: Prostate gland is enlarged, measuring approximately 5.5 cm in transverse dimension. OSSEOUS STRUCTURES: Multilevel degenerative changes in the spine. Chronic appearing deformity of the right iliac bone. Status post left total hip arthroplasty. CT/CT abdomen pelvis w IV con IMPRESSION: 1. No acute findings identified in the abdomen/pelvis. Normal appendix. 2. Cholelithiasis. 3. Enlarged prostate gland.
--- NOTE | ~2023-08-22 | CT_ITS ---
EXAMINATION: CT head/brain wo IV con CLINICAL INFORMATION: Reason for Exam aphasia 1 day COMPARISON: CT head without contrast 11/09/2022 TECHNIQUE: Contiguous axial imaging was performed from the skull base to vertex without intravenous contrast. Sagittal and coronal reformatted images were obtained. This CT examination was performed using dose optimization techniques as appropriate, variously including the following: * Automated exposure control * Adjustment of mA and/or kV according to patient size (this includes techniques or standardized protocols for targeted exams where dose is matched to indication/reason for exam; i.e. extremities or head) Use of iterative reconstruction technique DLP: 657 mGy-cm FINDINGS: No acute osseous or soft tissue abnormality. The mastoids are clear. Left maxillary sinus retention cyst. There is no evidence of acute intracranial hemorrhage or territorial infarction. No abnormal mass effect or midline shift is seen. Romero to white matter differentiation is well preserved. No extra-axial fluid collections are identified. No hydrocephalus. Proportional prominence of the ventricles and sulcal spaces related to volume loss. Patchy periventricular and deep white matter hypoattenuation is consistent with moderate small vessel ischemic changes. 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 CT/CT head/brain wo IV con IMPRESSION: No acute intracranial abnormality including hemorrhage, mass effect, hydrocephalus, or acute territorial edematous infarction.
--- NOTE | ~2023-08-22 | CT_ITS ---
EXAMINATION: CT ANGIOGRAM HEAD CT ANGIOGRAM NECK CLINICAL INFORMATION: Reason for Exam word finding difficulty COMPARISON: CT head 08/23/2023 TECHNIQUE: Test bolus sequences followed by intravenous administration 70 mL of Omnipaque 350. Helical imaging was performed in the axial plane from the aortic arch to the skull vertex. Delayed postcontrast imaging of the head was also performed. The data was processed at the soil technologist's workstation for generation of MIP sequences. Angled MIPs and volume rendered reformatted images were also generated at an offline 3D workstation. Stenoses are assessed in accordance with Holden et al. Quantification of Carotid Stenosis on CT Angiography. AJR 2006. 27(1):13-19. This CT examination was performed using dose optimization techniques as appropriate, variously including the following: *Automated exposure control *Adjustment of mA and/or kV according to patient size (this includes techniques or standardized protocols for targeted exams where dose is matched to indication/reason for exam; i.e. extremities or head) *Use of iterative reconstruction technique DLP: 1592.65 mGy-cm mGy-cm FINDINGS: CT HEAD: Moderate generalized parenchymal volume loss. Patchy periventricular and deep white matter hypoattenuation is nonspecific but most suggestive of mild chronic microangiopathy. No territorial loss of alexandra-white differentiation. Redemonstrated prominent perivascular space versus chronic lacunar infarct within the right temporal lobe subcortical white matter. No acute intracranial hemorrhage or extra-axial fluid collection. No mass lesion, significant mass effect, or herniation pattern. No pathologic intra-axial enhancement or regional oligemia. Lens replacements. Retention cyst along the roof of the left maxillary sinus opacifying the maxillary sinus ostium. No mastoid effusion. Osseous structures are intact. CTA HEAD: Calcific plaque of the intradural proximal left vertebral artery likely contributing to high-grade focal stenosis. Trace calcific plaque of the intradural right vertebral artery without associated stenosis. Mild to moderate focal stenosis along the proximal right P2 [employer]. Patchy calcific plaque along the carotid siphons without significant luminal narrowing. Dehiscence of the carotid impressions with the distal cavernous internal carotid arteries coursing within the posterior sphenoid sinuses. right [employer]. 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 No aneurysms and no high flow vascular malformations. Timing of the contrast bolus allows assessment of the major dural venous sinuses, which all opacify normally CTA NECK: Four vessel branching pattern with left vertebral artery arising directly from the arch between the left common carotid and left subclavian arteries. Mild atherosclerotic disease along the aortic arch and great vessel origins. 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 The remainder of the great vessel origins are widely patent.. The common carotid arteries are widely patent. Calcific plaque at the bilateral carotid bifurcations contribute to mild (less than 50%) luminal narrowing of the bilateral internal carotid artery origins. The right vertebral artery is dominant. Partially calcified fibrofatty plaque moderately narrows the right vertebral artery origin. Both vertebral arteries are widely patent throughout their extracranial cervical course. CT NECK: Multilevel cervical spondylitic disease. Apparent multilevel mild to moderate spinal canal and severe neural foraminal narrowing. Severe right glenohumeral joint osteoarthrosis with [id number] articulation, and ossified intra-articular loose bodies likely decompressed along the right bicipital tendon sheath. CT/CT angio head neck IMPRESSION: 1. No acute intracranial findings. 2. 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 3. Calcific plaque contributes to high grade stenosis of the intradural left vertebral artery. No proximal large vessel occlusion.
[2023-08-22 23:52] VITALS: BP 135/76; PULSE 78; RESP 18; TEMP 37.1; O2SAT 98; BMI 28.1
[2023-08-23] VITALS (9 sets, daily range): BP systolic 114–151; BP diastolic 52–86; PULSE 53–73; RESP 12–24; TEMP 36.4–38; O2SAT 95–99
--- NOTE | 2023-08-23 | ECG_ITS ---
Test Reason : AMS Blood Pressure : / mmHG Vent. Rate : 066 BPM Atrial Rate : 066 BPM P-R Int : 200 ms QRS Dur : 112 ms QT Int : 408 ms P-R-T Axes : 033 -67 076 degrees QTc Int : 427 ms Normal sinus rhythm Left anterior fascicular block Minimal voltage criteria for LVH, may be normal variant ( [place] product ) Abnormal ECG When compared with ECG of 03-SEP-2021 19:56, No significant change was found Referred By: Stefani Vasques Electronically Signed By:ROSE MCMILLAN MD
--- NOTE | 2023-08-23 00:36 | PC.NURSE ---
pt from triage, ambulatory into room, reports onset of sweating and shortness of breath x3 days, pt a&ox4 but slow to respond to questions; unsure if pt baseline. pt denies any urinary symptoms, reports starting new prostate mediation; reports hx of uti. pt reporting nausea, one episode of vomiting and diarrhea x3 days. pt normal sinus on tele 78-81bpm.
--- NOTE | 2023-08-23 00:46 | PC.NURSE ---
pt to CT at this time.
[2023-08-23 00:58] LABS: MANUAL DIFF FLAG NO
[2023-08-23 01:00] LABS: Basophils Percent Auto 0.2 % (0-2); Eosinophils Percent Auto 0.1 % (0-4); Hematocrit 42.8 % (42.0-52.0); Imm Gran Abs Auto 0.04 X10*3/uL (0.00-0.03); Imm Gran Pct Auto 0.4 % (0.0-0.4); Lymphocytes Absolute Auto 1.1 X10*3/uL (1.2-4.9); Lymphocytes Percent Auto 10.7 % (20-40); Mean Corpuscular Hemoglobin 31.6 pg (27.0-33.0); Mean Corpuscular Volume 90.3 fL (80.0-98.0); Monocytes Percent Auto 10.4 % (2-11); Neutrophils Absolute Auto 7.9 x10*3/uL (2.0-8.3); Neutrophils Percent Auto 78.2 % (45-73); Platelet Count 194 X10*3/uL (160-400); Red Blood Count 4.74 X10*6/uL (4.60-5.80); Red Cell Distribution Width 12.8 % (11.0-16.0)
--- NOTE | 2023-08-23 01:02 | ED_ITS ---
HPI - General Adult General Chief complaint: General Medical Stated complaint: n/v, body sweats, slurred speech Time Seen by Provider: 08/23/23 00:00 Source: patient Mode of arrival: ambulatory Limitations: no limitations History of Present Illness ED Provider: Dr. Stefani Vasques HPI narrative: Patient comes to the emergency room complaining of 3 days of nausea vomiting diarrhea, diaphoresis , headache and diffuse abdominal cramping but worse in the right lower quadrant. Patient states that he has been eating and drinking but everything comes right back up with vomit. According to the patient's daughter, they have noted that the patient has been having difficulty finding words since early in the morning, about 16 hours ago. Related Data Home Medications ?Medication ?Instructions ?Recorded ?Confirmed lisinopril 20 mg tablet 20 mg PO DAILY 02/03/23 hydrocortisone valerate 0.2 % appl topical BID 08/04/23 topical cream Previous Rx's ?Medication ?Instructions ?Recorded finasteride 5 mg tablet 5 mg PO DAILY 90 days #90 tabs 08/04/23 levofloxacin 500 mg tablet 500 mg PO DAILY #7 tabs 08/23/23 Allergies Allergy/AdvReac Type Severity Reaction Status Date / Time ceftriaxone [CEFTRIAXONE] Allergy Unknown HIVES/RASH Verified 08/22/23 23:57 mold [MOLD] Allergy Unknown ITCHIY Verified 08/22/23 23:57 THROAT,STUFFY HEAD Review of Systems 2 Review of Systems: Constitutional : No Weight loss, No Fever, No Chills, No Night Sweats, No Fatigue, No Malaise ENT/Mouth : No Hearing loss, No Ear Pain, No Nasal Congestion, No Sinus Pain, No Hoarseness, No sore throat, No Rhinorrhea, No Swallowing Difficulty Eyes: No Eye Pain, No Swelling, No Redness, No Foreign Body, No Discharge, No Vision Changes Cardiovascular : No Chest Pain, No SOB, No Dyspnea on Exertion, No Orthopnea, No Edema, No Palpitations Respiratory : No Cough, No Sputum, No Wheezing, No Smoke Exposure, No Dyspnea Gastrointestinal : Complaining of nausea vomiting diarrhea, No Constipation, No abdominal Pain, No Hematochezia, No Melena Genitourinary : no irregular bleeding, No Dysuria, No Urinary Frequency, No Hematuria, No Urinary Incontinence, No Urgency, No Flank Pain, No Urinary Flow Changes, No Hesitancy Musculoskeletal : No joint pain, No Myalgias, No Joint Swelling Skin : No Skin Lesions, No rash Neuro : No Weakness, No Numbness, No Paresthesias, No Loss of Consciousness, No Dizziness, complaining of Headache, complaining of intermittent trouble finding words Psych : No Anxiety/Panic, No Depression, No SI/HI/AH/VH, No Social Issues, Heme/Lymph: No Bruising, No Bleeding,No Lymphadenopathy Endocrine : No Polyuria, No Polydipsia, No Temperature Intolerance [facility] Social History Social History Alcohol intake: former Patient Tobacco Use Status: Never used Tobacco Smoked in Last 30 Days: No Use of substances other than those prescribed or required for medical reasons: No Advance Directives: No Advance Directives Information Provided: Yes Do you have a plan to hurt others: No Plan Current occupation: right hand dominant Physical Exam ED Vital Signs: Vital Signs - 24 hr 08/22/23 23:52 08/23/23 00:27 08/23/23 02:39 Temperature 98.7 F 98.9 F 97.7 F Pulse Rate 78 73 60 Respiratory Rate 18 19 19 Blood Pressure 135/76 123/71 114/52 L Pulse Oximetry 98 96 97 Oxygen Delivery Method Room Air Room Air Room Air 08/23/23 04:38 08/23/23 06:14 Temperature 98.4 F 98.6 F Pulse Rate 56 60 Respiratory Rate 15 12 Blood Pressure 134/66 125/71 Pulse Oximetry 96 97 Oxygen Delivery Method Room Air Room Air BMI result Body Mass Index 28.1 Const Other: Appearance: Alert. Oriented X3. No acute distress. Eyes: Pupils equal, round and reactive to light. ENT: Pharynx normal. Neck: Normal inspection. Neck supple. No lymph nodes noted. No crepitus CVS: Normal heart rate and rhythm. Pulses normal. Normal S1 and S2 Respiratory: No respiratory distress. Breath sounds normal. No Wheezing. No rales Abdomen: Soft and nontender. No rigidity. No distention. Skin: Skin warm and dry. Normal skin color. Normal skin turgor. Extremities: No lower extremity edema. No Lacerations. No Rash Neuro: Oriented X 3. No motor deficit. No sensory deficit. Moving all extremities. No slurred speech. CN 2 through 12 grossly intact Psych: calm, cooperative, normal affect NIH Stroke Scale Internal: Initial- Upon Arrival Level of Consciousness: Alert Level of Consciousness Questions: Answers both questions correctly Level of Consciousness Commands: Performs both tasks correctly Best Gaze: Normal Visual: No visual loss Facial Palsy: Normal Motor Arm (Right): No drift Motor Arm (Left): No drift Motor Leg (Right): No drift Motor Leg (Left): No drift Limb Ataxia: Absent Sensory: Normal Best Language: No aphasia Dysarthia: Normal Extinction and Inattention: No abnormality Score: 0 Medications Administered Discontinued Medications Generic Name Dose Route Start Last Admin Trade Name Austenq PRN Reason Stop Dose Admin Sodium Chloride 1,000 mls @ 999 mls/hr 08/23/23 01:05 08/23/23 02:34 Ns IVCONT 08/23/23 02:05 Infused .Q1H1M ONE Infusion Iohexol 85 ml 08/23/23 02:06 08/23/23 02:06 Iohexol 350 Mg/Ml 100 Ml Infus..Btl IV 08/23/23 02:07 85 ml ONCE ONE Administration Levofloxacin 500 mg 08/23/23 06:29 08/23/23 06:45 Levofloxacin 500 Mg Tablet PO 08/23/23 06:30 500 mg ONCE ONE Administration Loperamide HCl 4 mg 08/23/23 01:05 08/23/23 01:33 Loperamide Hcl 2 Mg Capsule PO 08/23/23 01:06 4 mg ONCE ONE Administration Ondansetron HCl 4 mg 08/23/23 01:05 08/23/23 01:33 Ondansetron Hcl 4 Mg/2 Ml Vial IVPUSH 08/23/23 01:06 4 mg ONCE ONE Administration Medical Decision Making Medical Decision Making [facility] Narrative: My interpretation of labs, hematology and chemistry did not show any obvious acute abnormality. -total bilirubin slightly elevated 1.4, rest of LFTs within normal limits. Patient has no right upper quadrant pain -CT scan of the abdomen, cholelithiasis with no pain or symptoms. -urinalysis does show a UTI. Patient was given p.o. levofloxacin. Patient has allergies to cephalosporins -I discussed the patient with our hospitalist, at this time, MRI recommended over admission. We will go ahead and order an MRI of the brain. -patient occasionally having difficulty finding words but speech is fairly good. The patient's informed me that the patient has had this issue before where he has trouble finding words, and it was secondary to a UTI. Patient's who is at bedside states that at this time, 07:30, the patient's symptoms are nearly resolved and his speech/difficulty finding words are much better than yesterday. Patient agrees with his 's assessment. -MRI pending -sign-out given to my colleague MARCELA Differential Diagnosis Differential Diagnoses: The differential diagnosis associated with the presentation includes (UTI, TIA, CVA) Admission/Observation Consideration of admission/observation: Escalation of care including admission/observation considered (Admission was considered given patient's thing of symptoms.) Lab Data MDM Lab Attestation statement: I reviewed the patient's lab results. 08/23/23 00:54 08/23/23 00:54 Labs: Lab Results 08/23/23 08/23/23 Range/Units 00:54 05:15 WBC 10.0 (4.8-10.8) X10*3/uL RBC 4.74 (4.60-5.80) X10*6/uL Hgb 15.0 (14.0-18.0) g/dl Hct 42.8 (42.0-52.0) % MCV 90.3 (80.0-98.0) fL MCH 31.6 (27.0-33.0) pg MCHC 35.0 (31.0-36.0) g/dl RDW 12.8 (11.0-16.0) % Plt Count 194 (160-400) X10*3/uL MPV 9.0 L (9.4-12.4) fL Immature Gran % (Auto) 0.4 (0.0-0.4) % Neut % (Auto) 78.2 H (45-73) % Lymph % (Auto) 10.7 L (20-40) % Grimes % (Auto) 10.4 (2-11) % Eos % (Auto) 0.1 (0-4) % Baso % (Auto) 0.2 (0-2) % Lymph # (Auto) 1.1 L (1.2-4.9) X10*3/uL Grimes # (Auto) 1.0 (0.1-1.2) X10*3/uL Eos # (Auto) 0.0 (0.0-0.4) X10*3/uL Baso # (Auto) 0.0 (0.0-0.2) X10*3/uL Abs Immat Gran (auto) 0.04 H (0.00-0.03) X10*3/uL Absolute Neuts (auto) 7.9 (2.0-8.3) x10*3/uL Absolute Nucleated RBC 0.000 (0.0-0.012) X10*3/uL Nucleated RBC % (auto) 0.0 (0.0-0.2) /100WBC Sodium 134 L (135-145) mmol/L Potassium 4.0 (3.3-5.1) mmol/L Chloride 105 (96-108) mmol/L Carbon Dioxide 20 L (22-29) mmol/L Anion Gap 13 (12-20) BUN 25 H (9-16) mg/dL Creatinine 1.30 (0.5-1.4) mg/dL Estim Creat Clear Calc 44.0 Estimated GFR 52 Random Glucose 106 (60-115) mg/dL Calcium 9.2 (8.4-10.2) mg/dL Total Bilirubin 1.4 H (0.0-1.0) mg/dL AST 24 (5-37) U/L ALT 30 (0-40) U/L Alkaline Phosphatase 44 (39-117) U/L Total Protein 7.2 (6.5-8.0) g/dL Albumin 4.0 (3.5-5.0) g/dL Lipase 13 (8-78) U/L Urine Color Yellow Urine Appearance Clear Urine pH 5.5 (5.0-9.0) Ur Specific Raymond >= 1.030 H (1.005-1.025) Urine Protein Trace (Neg-Trace) mg/dL Urine Glucose (UA) Negative (Negative) mg/dL Urine Ketones Trace (Negative) mg/dL Urine Blood Trace H (Negative) Urine Nitrite Negative (Negative) Ur Leukocyte Esterase Small (1+) H (Negative) Urine RBC 0-2 (0-2) /HPF Urine WBC 11-20 H (0-5) /HPF Ur Squamous Epith Cells 0-2 (0-2) /HPF Urine Bacteria None Seen (None Seen) Hyaline Casts 0-2 (0-2) /LPF Influenza Type A (PCR) NEGATIVE (Negative) Influenza Type B (PCR) NEGATIVE (Negative) RSV RNA Qual (PCR) NEGATIVE (Negative) SARS-CoV-2 RNA (RT-PCR) NEGATIVE (Negative) Independent Interpretation I performed an independent interpretation of an: CT Scan Radiology Impression Discussion of test interpretation with radiology: I have reviewed the radiologist's reading. Radiologist Impression: [address] [id number] [address] Scan Report Signed Patient: Judi Griffiths MR#: [id number] : 05/26/1990 Acct:[id number] Age/Sex: 33 / F ADM Date: 08/23/23 Loc: .ED Attending Dr: Ordering Physician: Stefani Vasques MD Date of Service: 08/23/23 Procedure(s): CT abdomen pelvis w IV con Accession Number(s): [id number] cc: Richar Viveros MD; Stefani Vasques MD~ EXAMINATION: CT ABDOMEN AND PELVIS WITH CONTRAST CLINICAL INFORMATION: Right lower quadrant pain. COMPARISON: 12/02/2018 TECHNIQUE: Multidetector volumetric images were obtained from the superior aspect of the liver through the pubic symphysis following administration 85 mL of Omnipaque 350 intravenous contrast. Sagittal and coronal reformatted images were obtained on the technologist's workstation. Oral contrast: No This CT examination was performed using dose optimization techniques as appropriate, variously including the following: *Automated exposure control *Adjustment of mA and/or kV according to patient size (this includes techniques or standardized protocols for targeted exams where dose is matched to indication/reason for exam; i.e. extremities or head) *Use of iterative reconstruction technique DLP: 360 mGy-cm FINDINGS: LUNG BASES: No pulmonary consolidation or pleural effusion. HEPATOBILIARY: Liver has normal size and contour. 0.5 cm hypodense focus at the hepatic dome probably represents a hemangioma; it has a density of approximately 50 Hounsfield units. 1.7 cm hypodense focus in the inferior right hepatic lobe has features of a cavernous hemangioma, as noted on 12/02/2018. It was 1.5 cm on the prior CT exam. Also, a nearby hypodense 1 cm focus in the inferior right lobe of approximately 50 Hounsfield unit attenuation is compatible with a hemangioma. Gallbladder has a normal appearance. No dilated bile ducts. PANCREAS: No edema, pancreatic ductal dilatation or mass. SPLEEN: Normal. ADRENAL GLANDS: Normal. KIDNEYS AND URETERS: Kidneys are normal in size. No nephrolithiasis, hydronephrosis or perinephric edema. 1 cm simple cortical cyst of the posterior upper pole the right kidney. No renal imaging follow-up is recommended for simple cyst. BLADDER: Underdistended, grossly unremarkable. BOWEL AND PERITONEUM: No dilated bowel loops. There are a few appendicoliths, and the appendix is filled with fluid, distended up to 1.4 cm diameter. The appendix has a thickened wall. Trace periappendiceal fluid is present but there is no circumscribed, measurable periappendiceal collection. ABDOMINAL WALL: Unremarkable. VASCULATURE: Abdominal aorta is normal in caliber and its branches widely patent. LYMPH NODES: No pathologic sized lymph nodes in the abdomen or pelvis. No inguinal lymphadenopathy. PELVIC VISCERA: The uterus and adnexa have a normal appearance. The largest follicle within the right ovary is 1.4 cm. MUSCULOSKELETAL: Unremarkable. CT/CT abdomen pelvis w IV con IMPRESSION: * Acute appendicitis with presence of trace periappendiceal fluid. There is no visible disruption of the appendiceal wall. * Hemangiomas of the liver. Critical Care Time Critical Care Time Critical Care Time: Yes Total Critical Care Time: 70 Attestation: I have personally provided critical care time. Time includes review of lab data, radiology results, discussion with consultants, and monitoring for potential decompensation. Intervention performed as documented. Discharge Plan Discharge Clinical Impression: Acute UTI, Dysarthria Patient Disposition: Still a Patient Prescriptions: New levofloxacin 500 mg tablet 500 mg PO DAILY Qty: 7 0RF No Action hydrocortisone valerate 0.2 % cream topical BID finasteride 5 mg tablet 5 mg PO DAILY 90 Days Qty: 90 1RF lisinopril 20 mg tablet 20 mg PO DAILY Print Language: [place]
[2023-08-23 01:12] LABS: Alanine Aminotransferase 30 U/L (0-40); Alkaline Phosphatase 44 U/L (39-117); Anion Gap 13 (12-20); Aspartate Amino Transferase 24 U/L (5-37); Bilirubin Total 1.4 mg/dL (0.0-1.0); Blood Urea Nitrogen 25 mg/dL (9-16); Calcium 9.2 mg/dL (8.4-10.2); Carbon Dioxide 20 mmol/L (22-29); Chloride 105 mmol/L (96-108); Estimated Glomerular Filt Rate 52; Glucose Random 106 mg/dL (60-115); Lipase 13 U/L (8-78); Sodium 134 mmol/L (135-145); Total Protein 7.2 g/dL (6.5-8.0)
[2023-08-23] MEDS: ondansetron HCL 4 MG/2 ML VIAL IVPUSH (01:33)
[2023-08-23] MEDS: 0.9 % Sodium Chloride 1,000 ML 999 ML IVCONT (01:33)
[2023-08-23] MEDS: Loperamide HCl 2 MG CAPSULE 4 MG PO (01:33)
--- NOTE | 2023-08-23 01:35 | PC.NURSE ---
pt medicated per mar, pt tolerated well with water.
[2023-08-23 01:36] LABS: Influenza A PCR NEGATIVE (Negative); Influenza B PCR NEGATIVE (Negative); Resp Syncy Virus RNA Qual PCR NEGATIVE (Negative); SARS COV2 PCR INHOUSE NEGATIVE (Negative)
[2023-08-23] MEDS: iohexoL 350 MG/ML 100 ML INFUS..BTL 85 ML IV (02:06)
--- NOTE | 2023-08-23 05:09 | PC.NURSE ---
pt ambulated to bathroom with steady gait with stand by assist. urine sample obtained.
[2023-08-23 05:20] LABS: Appearance Urine Clear; Color Urine Yellow; Glucose Urine UA Negative (Negative); Leukocyte Esterase Urine Small (1+) (Negative); Nitrite Urine Negative (Negative); PH 5.5 (5.0-9.0); Specific Gravity - Urine >= 1.030 (1.005-1.025); UMIC TRIGGER UACC YES; Urine Blood Trace (Negative); Urine Ketones Trace mg/dL (Negative); Urine Protein Trace mg/dL (Neg-Trace)
[2023-08-23 05:25] LABS: Bacteria Urine None Seen (None Seen); Hyaline Casts Urine 0-2 /LPF (0-2); RBC Urine 0-2 /HPF (0-2); Squamous Epithelial Cell Urine 0-2 /HPF (0-2); UACC Culture Trigger YES
[2023-08-23] MEDS: levoFLOXacin 500 MG TABLET PO (06:45)
--- NOTE | 2023-08-23 06:46 | PC.NURSE ---
pt medicated per mar, tolerated well with water.
[2023-08-23] MEDS: Acetaminophen 325 MG TABLET 650 MG PO (08:43)
--- NOTE | 2023-08-23 08:55 | PC.NURSE ---
patient found to be incontinent of stool, full linen change performed. MRI screening form obtained w/ patient and daughter in room. medicated per the MAY.
--- NOTE | 2023-08-23 18:26 | PC.NURSE ---
pt alert, oriented. sometimes slow to answer questions but does so appropriately. Earlier today pt refused MRI bc in the past he has been very anxious about them. Pt refused medication to make MRI less stressful. Pt now has a CTA pending which cannot be done until previous contrast has cleared.
[2023-08-24] VITALS: BP 141/66; PULSE 54; RESP 18; TEMP 36.9; O2SAT 95
[2023-08-24] MEDS: iohexoL 350 MG/ML 100 ML INFUS..BTL 70 ML IV (02:13)
--- NOTE | 2023-08-24 02:19 | PC.NURSE ---
Pt back from MRI.
--- NOTE | 2023-08-24 02:20 | PC.NURSE ---
Pt back from CT.
[2023-08-24 05:10] VITALS: BP 142/67; PULSE 56; RESP 18; TEMP 36.7; O2SAT 94
--- NOTE | 2023-08-24 08:10 | PC.NURSE ---
pt ambulated well without assistance, normal gait, no complaiints. plan to d/c
[2023-08-24 08:21] VITALS: BP 142/67; PULSE 56; RESP 18; TEMP 36.7; O2SAT 94
== END 2023-08-24 08:21 | disposition home or self-care (01) ==
PROVIDERS: Emergency Provider Emergency Medicine; PCP Internal Medicine
DX: N39.0 Urinary tract infection, site not specified (principal); R47.1 Dysarthria and anarthria; I65.02 Occlusion and stenosis of left vertebral artery; Z03.818 Encounter for observation for suspected exposure to other biological agents ruled out
CPT/HCPCS: 0241U; 36415; 70450; 70496; 70498; 74177; 80053; 81001; 83690; 85025; 87086; 87088; 87186; 93005; 96361; 96374; 99285; J2405; Q9967

== ENCOUNTER → 2023-08-23 00:41 | Outpatient (BNV) | payer MEDICARE, OTHER, SELFPAY | PROVIDERS: Emergency Provider Emergency Medicine; PCP Internal Medicine; Visit Provider Internal Medicine Cardiovascular Disease | DX: R94.31 Abnormal electrocardiogram [ECG] [EKG] (principal); R41.82 Altered mental status, unspecified | CPT/HCPCS: 93010 ==

== ENCOUNTER 2023-09-01 08:57 | Outpatient (AMB) | payer MEDICARE, OTHER, SELFPAY ==
--- NOTE | 2023-09-01 09:21 | MHC.OFFVIS ---
Intake Visit Reasons: ER Follow up UTI Intake Note: Patient is Present for PVR/[facility] Follow Up UTI/Acute Cystitis Urology Med:Finasteride Antibiotic Allergy: None Blood Thinner:Aspirin Last PVR: 30 Todays PVR: 23 Patient was at [facility] on 08/25 and was admitted for 2 days patient was sent home with Levaquin for his UTI Patient states that his symptoms had improved Allergies ceftriaxone [CEFTRIAXONE] Allergy (Unknown, Verified 08/22/23 23:57) HIVES/RASH mold [MOLD] Allergy (Unknown, Verified 08/22/23 23:57) ITCHIY THROAT,STUFFY HEAD Medication List - Last Reconciled 09/01/23 by Jose Ramon Peralta MD aspirin 325 mg PO DAILY finasteride 5 mg PO DAILY 90 days hydrocortisone valerate 0.2% appl topical BID levofloxacin 500 mg PO DAILY lisinopril 20 mg PO DAILY HPI Comments Details: Alvin is a very pleasant male. He is a patient of Dr. Roque. He is seen for the following urologic conditions. - lower urinary tract symptoms - elevated PSA Has had 2 episode of UTI with ER visit and Levaquin treatment Associated with constipation Advice given to help move bowels Start vitamin-C 1000 mg to try to acidify urine Self start Levaquin given Plan cystoscopy CARINA with small nodule right base Continue to follow every 6 months Lower Urinary Tract Symptoms Current visit is for further evaluation of, lower urinary tract symptoms, predominate obstructive symptoms. Prior treatments include 09/07 , GreenLight laser of the prostate. Prostate Symptom Score 2/20 , Moderate (9-19), Bother 3. Symptoms include 2/20 , incomplete emptying, weak stream, nocturia (>2), and are progressing. Prior Prostate Score unknown. PSA 10/07 5 - chronic inflammation, 04/10 5.4, 12/09 6.8, 07/10 4.0, 08/10 7.8, 02/10 8.6 20%, 08/11 9.8 18% Prostate volume 50+gm. Testing at next visit will include bladder scan. Treatment plan 6 months with PSA PFSH Social History Alcohol intake: former Patient Tobacco Use Status: Never used Tobacco Current occupation: right hand dominant Review of Systems Const Denies chills and Denies fever(s) Card Reports no additional complaints and Denies syncope Resp Denies cough GI Denies abdominal pain and Denies heartburn Reports as per HPI and Denies change in libido Neuro Denies syncope Psych Denies change in libido Endo Denies change in libido Physical Exam Const General: cooperative, healthy appearing, comfortable and no acute distress Orientation/consciousness: patient oriented x3 HEENT Face and sinus: Yes normal facial exam Mouth: moist mucous membranes Neck Neck: Yes normal visual inspection, Yes full ROM and Yes trachea midline Chest Chest palpation & inspection: normal inspection of the chest Resp Effort & Inspection: normal respiratory effort, able to speak in complete sentences and no respiratory distress GI Inspection: Yes normal to inspection Back/Spine/Pelvis Cervical Spine: normal cervical lordosis Thoracic/Lumbar Spine: thoracic and lumbar spine normal to inspection Skin General skin exam: no rashes or lesions noted Neuro General: patient oriented x3, gait normal, tone normal and moves all extremities Extrem General: Yes normal to inspection and Yes capillary refill normal Office Procedures Post Void Residual Post Residual Void Post Void Residual (PVR): 23 [id number] Void Residual by ultrasound Results AMB Urinalysis, Automated UA Leukoctes 0 Laurel/uL Last Edit by NEHAL Vasquez on 09/01/23 09:32 UA Nitrite Negative Last Edit by NEHAL Vasquez on 09/01/23 09:32 UA Urobilinogen 0.2 mg/dL Last Edit by NEHAL Vasquez on 09/01/23 09:32 UA Protein 0 mg/dL Last Edit by NEHAL Vasquez on 09/01/23 09:32 UA pH 6.0 Last Edit by NEHAL Vasquez on 09/01/23 09:32 UA Blood 0 Oni/uL Last Edit by NEHAL Vasquez on 09/01/23 09:32 UA Specific [place] 1.015 Last Edit by NEHAL Vasquez on 09/01/23 09:32 UA Ketone Negative Last Edit by NEHAL Vasquez on 09/01/23 09:32 UA Bilirubin 0 mg/dL Last Edit by NEHAL Vasquez on 09/01/23 09:32 UA Glucose 0 mg/dL Last Edit by NEHAL Vasquez on 09/01/23 09:32 Assessment & Plan Assessment & Plan (1) Complicated urinary tract infection: Code(s): N39.0 - Urinary tract infection, site not specified Category: Medical Plan Plan cystoscopy office Start vitamin-C as preventative Has Levaquin for emergency Orders: Orders AMB Post Void Residual by ultrasound Today N13.8 - Other obstructive and reflux uropathy, N40.1 - Benign prostatic hyperplasia with lower urinary tract symptoms AMB Urinalysis Automated Today Z13.9 - Encounter for screening, unspecified Medications: New ascorbic acid (vitamin C) 1,000 mg PO DAILY 90 days 90 tabs 1RF N39.0 - Urinary tract infection, site not specified levofloxacin to be started for symptoms more than 48hrs 250 mg PO daily 5 days 5 tabs 0RF N39.0 - Urinary tract infection, site not specified Patient Instructions: Imaging studies, laboratory and physical exam results were discussed and reviewed in detail. No major barriers to patient understanding were identified. An opportunity to ask questions regarding the treatment plan was provided. All questions were answered. The patient expressed understanding and agreement with the above treatment plan. The patient is aware they should contact our office by phone for worsening of their current condition or the appearance of new urologic symptoms. Compliance is encouraged with any medications and followup testing that is ordered. It is a privilege to participate in the urologic care of your patient. If you have any questions or concerns regarding treatment for the above conditions, or other urologic issues, please do not hesitate to contact me. The office telephone contact is [phone]. This note is constructed using voice recognition software. While every effort has been made to ensure accuracy manager labor relations errors may have been included. Yours sincerely, Dr Jose Ramon Peralta MD, [facility] - Urology Providers of Expert, Compassionate Care for the Genitourinary System Coding Level of Care Code Est Pt Level 4 (17515) Diagnoses Complicated urinary tract infection N39.0 CPT Codes Post Residual Void - PVR CPT Code: 39639-Hwil Void Residual by ultrasound ([id number])
== END 2023-09-01 09:49 | disposition home or self-care (01) ==
PROVIDERS: PCP Internal Medicine; Visit Provider Urology
DX: N39.0 Urinary tract infection, site not specified (principal); Z13.9 Encounter for screening, unspecified
CPT/HCPCS: 99214

== ENCOUNTER → 2023-09-01 08:57 | Outpatient (BNVA) | payer MEDICARE, OTHER, SELFPAY | PROVIDERS: PCP Internal Medicine; Visit Provider Urology | DX: N39.0 Urinary tract infection, site not specified (principal) | CPT/HCPCS: 51798; 81003; 99212 ==

== ENCOUNTER 2023-10-06 10:58 | Outpatient (AMB) | payer MEDICARE, OTHER, SELFPAY ==
--- NOTE | 2023-10-06 10:59 | MHC.OFFVIS ---
Intake Visit Reasons: cysto Intake Note: Patient is Present for A cysto Urology Med:Finasteride,vitamin C, levofloxacin Antibiotic Allergy: None Blood Thinner:Aspirin Lot:[id number] Exp:05/05/2026 Well Logging Captain Mud Analysis Required: No Allergies ceftriaxone [CEFTRIAXONE] Allergy (Unknown, Verified 10/06/23 11:02) HIVES/RASH mold [MOLD] Allergy (Unknown, Verified 10/06/23 11:02) ITCHIY THROAT,STUFFY HEAD HPI Comments Details: Alvin is a very pleasant male. He is a patient of Dr. Roque. He is seen for the following urologic conditions. - lower urinary tract symptoms - elevated PSA Has had 2 episode of UTI with ER visit and Levaquin treatment Doing well with vitamin-C Cystoscopy with open bladder neck Follow in 6 months Can stop finasteride CARINA with small nodule right base Continue to follow every 6 months Lower Urinary Tract Symptoms Current visit is for further evaluation of, lower urinary tract symptoms, predominate obstructive symptoms. Prior treatments include 09/07 , GreenLight laser of the prostate. Prostate Symptom Score 2/20 , Moderate (9-19), Bother 3. Symptoms include 2/20 , incomplete emptying, weak stream, nocturia (>2), and are progressing. Prior Prostate Score unknown. PSA 10/07 5 - chronic inflammation, 04/10 5.4, 12/09 6.8, 07/10 4.0, 08/10 7.8, 02/10 8.6 20%, 08/11 9.8 18% Prostate volume 50+gm. Testing at next visit will include bladder scan. Treatment plan 6 months with PSA PFS Social History Alcohol intake: former Patient Tobacco Use Status: Never used Tobacco Current occupation: right hand dominant Office Procedures Cystoscopy Consent Discussed risk and benefit or proposed procedure with the patient. Information consent for procedure given to the patient. Discussed technical aspects, risks, benefits and alternatives in full. Addressed all of the patient's questions and concerns regarding the procedure. The patient demonstrated knowledge and understanding. They wish to proceed with this procedure. Preparation The patient was prepped in the usual manner. A applied computer science professor was present and in the room. Genitalia was prepped with betadine solution in a sterile manner. Lidocaine Jelly 2% was placed into the urethra and 16Fr flexible Olympus cystoscope was inserted into the meatus after adequate lubrication. Procedure Cystoscopy performed using a disposable Urovue digital 16 Bahamian cystoscope. Meatus normal position Urethra anterior and posterior urethra normal Prostatic Urethra adequate TURP defect Bladder examination with retroflexion of cystoscope Bladder Orifices normal shape and position Bladder Capacity median Trabeculations grade 2/3 Cellule Formation yes Diverticulum Formation - Mucosal Erythema - Bladder Tumor - 74750-[id number] DISPOSABLE SCOPE URO-G FLEXIBLE SCOPE Procedure code (CPT) selection complete Office Meds lidocaine HCl 2 % mucosal jelly in applicator Performing Provider: Jose Ramon Peralta MD Performing Location: [facility] Administered by: Charles Calle LPN on 10/06/23 11:22 Dose Route Admin Location Dispensed Lot Number Expiration Date [facility] Transformation Specialist 10 mL intra-urethral 10 mL nitrofurantoin monohydrate/macrocrystals 100 mg capsule Performing Provider: Jose Ramon Peralta MD Performing Location: [facility] Administered by: Charles Calle LPN on 10/06/23 11:22 Dose Route Admin Location Dispensed Lot Number Expiration Date [place] Transformation Specialist 100 mg PO 1 cap naproxen 500 mg tablet Performing Provider: Jose Ramon Peralta MD Performing Location: [facility] [place] Administered by: Charles Calle LPN on 10/06/23 11:22 Dose Route Admin Location Dispensed Lot Number Expiration Date [place] Transformation Specialist 500 mg PO 1 tab Results AMB Urinalysis, Automated UA Leukoctes 15 Laurel/uL Last Edit by DEMETRIO Underwood on 10/06/23 11:16 UA Nitrite Negative Last Edit by DEMETRIO Underwood on 10/06/23 11:16 UA Urobilinogen 0.2 mg/dL Last Edit by DEMETRIO Underwood on 10/06/23 11:16 UA Protein 15 mg/dL Last Edit by DEMETRIO Underwood on 10/06/23 11:16 UA pH 6.0 Last Edit by DEMETRIO Underwood on 10/06/23 11:16 UA Blood 0 Oni/uL Last Edit by DEMETRIO Underwood on 10/06/23 11:16 UA Specific [place] 1.015 Last Edit by DEMETRIO Underwood on 10/06/23 11:16 UA Ketone Negative Last Edit by DEMETRIO Underwood on 10/06/23 11:16 UA Bilirubin 0 mg/dL Last Edit by DEMETRIO Underwood on 10/06/23 11:16 UA Glucose 0 mg/dL Last Edit by DEMETRIO Underwood on 10/06/23 11:16 Results Reviewed Results Reviewed: Laboratory Last Values Urine pH (Auto) 6.0 10/06/23 11:15 Specific [place] (Auto) 1.015 10/06/23 11:15 Urine Protein (Auto) 15 mg/dL 10/06/23 11:15 Glucose (UA)(Auto) 0 mg/dL 10/06/23 11:15 Urine Ketones (Auto) Negative 10/06/23 11:15 Urine Blood (Auto) 0 Oni/uL 10/06/23 11:15 Urine Nitrite (Auto) Negative 10/06/23 11:15 Urine Bilirubin (Auto) 0 mg/dL 10/06/23 11:15 Urine Urobilinogen (Auto) 0.2 mg/dL 10/06/23 11:15 Leukocyte Esterase (Auto) 15 Laurel/uL 10/06/23 11:15 Assessment & Plan Assessment & Plan (1) Elevated PSA: Code(s): R97.20 - Elevated prostate specific antigen [PSA] Category: Medical (2) BPH w urinary obs/LUTS: Code(s): N40.1 - Benign prostatic hyperplasia with lower urinary tract symptoms; N13.8 - Other obstructive and reflux uropathy Category: Medical (3) Complicated urinary tract infection: Code(s): N39.0 - Urinary tract infection, site not specified Category: Medical Plan Six-month follow-up PSA Orders: Orders AMB Urinalysis Automated Today Z13.9 - Encounter for screening, unspecified Prostate Specific Antigen 6 Months R97.20 - Elevated prostate specific antigen [PSA] AMB Cystoscopy Today N13.8 - Other obstructive and reflux uropathy, N40.1 - Benign prostatic hyperplasia with lower urinary tract symptoms, R35.1 - Nocturia, R97.20 - Elevated prostate specific antigen [PSA] Patient Instructions: Imaging studies, laboratory and physical exam results were discussed and reviewed in detail. No major barriers to patient understanding were identified. An opportunity to ask questions regarding the treatment plan was provided. All questions were answered. The patient expressed understanding and agreement with the above treatment plan. The patient is aware they should contact our office by phone for worsening of their current condition or the appearance of new urologic symptoms. Compliance is encouraged with any medications and followup testing that is ordered. It is a privilege to participate in the urologic care of your patient. If you have any questions or concerns regarding treatment for the above conditions, or other urologic issues, please do not hesitate to contact me. The office telephone contact is [phone]. This note is constructed using voice recognition software. While every effort has been made to ensure accuracy billet recorder errors may have been included. Yours sincerely, Dr Jose Ramon Peralta MD, [facility] - Urology Providers of Expert, Compassionate Care for the Genitourinary System Coding Level of Care Code Est Pt Level 3 (53203) Diagnoses Elevated PSA R97.20 BPH w urinary obs/LUTS N40.1; N13.8 Complicated urinary tract infection N39.0 CPT Codes Cystoscopy - CPT: 39128-Togylqghob ([id number])
== END 2023-10-06 11:40 | disposition home or self-care (01) ==
LOC: HO.HUSH 10:58
PROVIDERS: PCP Internal Medicine; Visit Provider Urology
DX: R97.20 Elevated prostate specific antigen [PSA] (principal); N40.1 Benign prostatic hyperplasia with lower urinary tract symptoms; R35.1 Nocturia; N13.8 Other obstructive and reflux uropathy; N39.0 Urinary tract infection, site not specified; Z13.9 Encounter for screening, unspecified
CPT/HCPCS: 52000; 99213

== ENCOUNTER → 2023-10-06 10:58 | Outpatient (BNVA) | payer MEDICARE, OTHER, SELFPAY | PROVIDERS: PCP Internal Medicine; Visit Provider Urology | DX: N40.1 Benign prostatic hyperplasia with lower urinary tract symptoms (principal); N13.8 Other obstructive and reflux uropathy; R97.20 Elevated prostate specific antigen [PSA]; N39.0 Urinary tract infection, site not specified | CPT/HCPCS: 52000; 81003; 99212 ==

== ENCOUNTER 2023-12-30 07:34 | Outpatient (REF) | payer MEDICARE, OTHER, SELFPAY ==
--- NOTE | ~2023-12-30 | CT_ITS ---
EXAMINATION: CT HEAD WITHOUT CONTRAST CLINICAL INFORMATION: Speech disturbances, transient ischemic attack COMPARISON: CT angiography head and neck 08/24/2023 TECHNIQUE: Contiguous axial imaging was performed from the skull base to vertex without intravenous administration of contrast. This CT examination was performed using dose optimization techniques as appropriate, variously including the following: *Automated exposure control *Adjustment of mA and/or kV according to patient size (this includes techniques or standardized protocols for targeted exams where dose is matched to indication/reason for exam; i.e. extremities or head) *Use of iterative reconstruction technique DLP: 826 mGy-cm FINDINGS: There is no evidence of acute intracranial hemorrhage or edematous territorial infarction. Romero-white matter differentiation appears preserved. There is proportional prominence of the ventricles and cortical sulci with diffuse volume loss. Patchy hypodensities within the periventricular and deep white matter likely representing mild chronic microangiopathy.No abnormal mass effect or midline shift. No acute extra-axial fluid collections. No acute soft tissue or osseous abnormalities. Small mucous retention cyst in the left maxillary sinus with mild left maxillary sinus mucosal thickening. The remaining visualized paranasal sinuses and mastoids are well-aerated. CT/CT head/brain wo IV con IMPRESSION: No acute intracranial pathology. 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 Electronically signed by: Jimy Aguilar MD 12/30/2023 08:33 AM EDT
== END 2023-12-30 07:35 | disposition home or self-care (01) ==
LOC: HO.CT 07:34
PROVIDERS: PCP Internal Medicine; Visit Provider Internal Medicine
DX: R47.89 Other speech disturbances (principal); G45.9 Transient cerebral ischemic attack, unspecified
CPT/HCPCS: 70450

== ENCOUNTER 2024-02-23 13:52 | Outpatient (REF) | payer SELFPAY | END 2024-02-23 13:53 | disposition home or self-care (01) | LOC: HO.HAP 13:52 | PROVIDERS: Visit Provider Internal Medicine | DX: Z46.1 Encounter for fitting and adjustment of hearing aid (principal); H90.3 Sensorineural hearing loss, bilateral | CPT/HCPCS: V5299 ==

== ENCOUNTER 2024-03-06 11:00 | Outpatient (REF) | payer SELFPAY ==
[2024-03-06 12:50] LABS: PSA,Total (Free>4and<10) 14.95 ng/mL (0.00-4.00)
== END 2024-03-06 11:01 | disposition home or self-care (01) ==
LOC: HO.10HDL 11:00
PROVIDERS: Visit Provider Urology
DX: Z12.5 Encounter for screening for malignant neoplasm of prostate (principal); R97.20 Elevated prostate specific antigen [PSA]
CPT/HCPCS: 36415; 84153

== ENCOUNTER 2024-04-05 11:43 | Outpatient (AMB) | payer OTHER, SELFPAY ==
--- NOTE | 2024-04-05 11:47 | A.OFFVIS_ITS ---
Intake Visit Reasons: 6m/PSA/PVR/UA(set) Intake Note: Patient is present for 6M/PSA/PVR/UA Urology Medication:VITAMIN C Antibiotic Allergy:NONE Blood Thinner:ASPIRIN Todays PVR: Bench Assembler Required: No Allergies ceftriaxone [CEFTRIAXONE] Allergy (Unknown, Verified 04/05/24 11:48) HIVES/RASH mold [MOLD] Allergy (Unknown, Verified 04/05/24 11:48) ITCHIY THROAT,STUFFY HEAD HPI Comments Details: Alvin is a very pleasant male. He is a patient of Dr. Roque. He is seen for the following urologic conditions. - lower urinary tract symptoms - elevated PSA Off finasteride PSA has risen Did have recent episode with question of incomplete bladder emptying Restart finasteride Add vitamin-C and methenamine to help with bladder CARINA with small nodule right base Continue to follow every 6 months Lower Urinary Tract Symptoms Current visit is for further evaluation of, lower urinary tract symptoms, predominate obstructive symptoms. Prior treatments include 09/07 , GreenLight laser of the prostate with open bladder neck Prostate Symptom Score 2/20 , Moderate (9-19), Bother 3. Symptoms include 2/20 , incomplete emptying, weak stream, nocturia (>2), and are progressing. Prior Prostate Score unknown. PSA 10/07 5 - chronic inflammation, 04/10 5.4, 12/09 6.8, 07/10 4.0, 08/10 7.8, 02/10 8.6 20%, 08/11 9.8 18%, 03/13 14.95 PCPT 25% high grade Prostate volume 50+gm. Testing at next visit will include bladder scan. Treatment plan 6 months with PSA [facility] Social History Alcohol intake: former Patient Tobacco Use Status: Never used Tobacco Current occupation: right hand dominant Review of Systems Const Denies chills and Denies fever(s) Card Reports no additional complaints and Denies syncope Resp Denies cough GI Denies abdominal pain and Denies heartburn Reports as per HPI and Denies change in libido Neuro Denies syncope Psych Denies change in libido Endo Denies change in libido Physical Exam Const General: cooperative, healthy appearing, comfortable and no acute distress Orientation/consciousness: patient oriented x3 HEENT Face and sinus: Yes normal facial exam Mouth: moist mucous membranes Neck Neck: Yes normal visual inspection, Yes full ROM and Yes trachea midline Chest Chest palpation & inspection: normal inspection of the chest Resp Effort & Inspection: normal respiratory effort, able to speak in complete sentences and no respiratory distress GI Inspection: Yes normal to inspection Back/Spine/Pelvis Cervical Spine: normal cervical lordosis Thoracic/Lumbar Spine: thoracic and lumbar spine normal to inspection Skin General skin exam: no rashes or lesions noted Neuro General: patient oriented x3, gait normal, tone normal and moves all extremities Extrem General: Yes normal to inspection and Yes capillary refill normal Results AMB Urinalysis, Automated UA Leukoctes 70 Laurel/uL Last Edit by DEMETRIO Underwood on 04/05/24 11:57 UA Nitrite Negative Last Edit by Ken Prado CCM on 04/05/24 11:57 UA Urobilinogen 0.2 mg/dL Last Edit by Ken Prado CCM on 04/05/24 11:5 7 UA Protein 15 mg/dL Last Edit by Ken Prado CCM on 04/05/24 11:57 UA pH 6.0 Last Edit by Ken Prado CCM on 04/05/24 11:57 UA Blood 25 Oni/uL Last Edit by Ken Prado CCM on 04/05/24 11:57 UA Specific [place] 1.025 Last Edit by Ken Prado CCM on 04/05/24 11: 57 UA Ketone Negative Last Edit by Ken Prado CCM on 04/05/24 11:57 UA Bilirubin 0 mg/dL Last Edit by Ken Prado [facility] on 04/05/24 11:57 UA Glucose 0 mg/dL Last Edit by Ken Prado [facility] on 04/05/24 11:57 Results Reviewed Results Reviewed: Laboratory Last Values Urine pH (Auto) 6.0 04/05/24 11:57 Specific [place] (Auto) 1.025 04/05/24 11:57 Urine Protein (Auto) 15 mg/dL 04/05/24 11:57 Glucose (UA)(Auto) 0 mg/dL 04/05/24 11:57 Urine Ketones (Auto) Negative 04/05/24 11:57 Urine Blood (Auto) 25 Oni/uL 04/05/24 11:57 Urine Nitrite (Auto) Negative 04/05/24 11:57 Urine Bilirubin (Auto) 0 mg/dL 04/05/24 11:57 Urine Urobilinogen (Auto) 0.2 mg/dL 04/05/24 11:57 Leukocyte Esterase (Auto) 70 Laurel/uL 04/05/24 11:57 Assessment & Plan Assessment & Plan (1) Nocturia: Code(s): R35.1 - Nocturia Category: Medical (2) Complicated urinary tract infection: Code(s): N39.0 - Urinary tract infection, site not specified Category: Medical Plan Methenamine with vitamin-C Finasteride Orders: Orders PSA,Total (Free>4and<10) 6 Months R97.20 - Elevated prostate specific antigen [PSA] AMB Urinalysis Automated Today Z13.9 - Encounter for screening, unspecified Medications: New methenamine hippurate 1 g PO DAILY 90 days 90 tabs 1RF N39.0 - Urinary tract infection, site not specified, R97.20 - Elevated prostate specific antigen [PSA] Patient Instructions: Imaging studies, laboratory and physical exam results were discussed and reviewed in detail. No major barriers to patient understanding were identified. An opportunity to ask questions regarding the treatment plan was provided. All questions were answered. The patient expressed understanding and agreement with the above treatment plan. The patient is aware they should contact our office by phone for worsening of their current condition or the appearance of new urologic symptoms. Compliance is encouraged with any medications and followup testing that is ordered. It is a privilege to participate in the urologic care of your patient. If you h ave any questions or concerns regarding treatment for the above conditions, or other urologic issues, please do not hesitate to contact me. The office telephone contact is [phone]. This note is constructed using voice recognition software. While every effort has been made to ensure accuracy locomotive engineer electric errors may have been included. Yours sincerely, Dr Jose Ramon Peralta MD, [facility] - Urology Providers of Expert, Compassionate Care for the Genitourinary System Coding Level of Care Code Est Pt Level 3 (89617) Diagnoses Nocturia R35.1 Complicated urinary tract infection N39.0
== END 2024-04-05 12:06 | disposition home or self-care (01) ==
LOC: HO.HUSH 11:44
PROVIDERS: PCP Internal Medicine; Visit Provider Urology
DX: R35.1 Nocturia (principal); N39.0 Urinary tract infection, site not specified; Z13.9 Encounter for screening, unspecified
CPT/HCPCS: 99213

== ENCOUNTER → 2024-04-05 11:43 | Outpatient (BNVA) | payer SELFPAY | PROVIDERS: PCP Internal Medicine; Visit Provider Urology | DX: R35.1 Nocturia (principal); N39.0 Urinary tract infection, site not specified | CPT/HCPCS: 81003 ==

== ENCOUNTER 2024-09-17 11:55 | Outpatient (REF) | payer MEDICARE, OTHER, SELFPAY ==
[2024-09-17 13:17] LABS: PSA,Total (Free>4and<10) 19.49 ng/mL (0.00-4.00)
== END 2024-09-17 11:56 | disposition home or self-care (01) ==
LOC: HO.LAB 11:55
PROVIDERS: PCP Internal Medicine; Visit Provider Urology
DX: R97.20 Elevated prostate specific antigen [PSA] (principal); Z12.5 Encounter for screening for malignant neoplasm of prostate
CPT/HCPCS: 36415; 84153

== ENCOUNTER 2024-10-05 11:03 | Outpatient (REF) | payer MEDICARE, OTHER, SELFPAY | END 2024-10-05 11:04 | disposition home or self-care (01) | LOC: HO.LAB 11:03 | PROVIDERS: PCP Internal Medicine; Visit Provider Urology | DX: Z13.9 Encounter for screening, unspecified (principal) | CPT/HCPCS: 51798; 81003; 87086; 99212 ==

== ENCOUNTER 2024-10-05 11:03 | Outpatient (AMB) | payer MEDICARE, SELFPAY ==
--- NOTE | 2024-10-05 11:38 | A.OFFVIS_ITS ---
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 He is a patient of Dr. Pritchett. He is seen for the following urologic conditions. 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 Prior treatments include 09/07 , GreenLight laser of the prostate with open bladder neck Prostate Symptom Score 2/20 , Moderate (9-19), Bother 3. Symptoms include 2/20 , incomplete emptying, weak stream, nocturia (>2), and are progressing. Prior Prostate Score unknown. PSA 10/07 5 - chronic inflammation, 04/10 5.4, 12/09 6.8, 07/10 4.0, 08/10 7.8, 02/10 8.6 20%, 08/11 9.8 18%, 03/13 14.95 PCPT 25% high grade, 09/12 19 Prostate volume 50+gm. Testing at next visit will include bladder scan. Treatment plan 6 months with PSA PFS Social History Alcohol intake: former Patient Tobacco Use Status: Never used Tobacco Current occupation: right hand dominant Review of Systems Const Denies chills and Denies fever(s) Card Reports no additional complaints and Denies syncope Resp Denies cough GI Denies abdominal pain and Denies heartburn Reports as per HPI and Denies change in libido Neuro Denies syncope Psych Denies change in libido Endo Denies change in libido Physical Exam Const General: cooperative, healthy appearing, comfortable and no acute distress Orientation/consciousness: patient oriented x3 HEENT Face and sinus: Yes normal facial exam Mouth: moist mucous membranes Neck Neck: Yes normal visual inspection, Yes full ROM and Yes trachea midline Chest Chest palpation & inspection: normal inspection of the chest Resp Effort & Inspection: normal respiratory effort, able to speak in complete sentences and no respiratory distress GI Inspection: Yes normal to inspection Rectal Exam - Male: Yes normal sphincter tone and Yes prostate normal Male General Exam: Yes normal external exam Penis: normal penis and circumcised Meatus: meatus normal Scrotum: scrotum normal Testes: Testes normal Back/Spine/Pelvis Cervical Spine: normal cervical lordosis Thoracic/Lumbar Spine: thoracic and lumbar spine normal to inspection Skin General skin exam: no rashes or lesions noted Neuro General: patient oriented x3, gait normal, tone normal and moves all extremities Extrem General: Yes normal to inspection and Yes capillary refill normal Assessment & Plan Assessment & Plan (1) Nocturia: Code(s): R35.1 - Nocturia Category: Medical (2) Elevated PSA: Code(s): R97.20 - Elevated prostate specific antigen [PSA] Category: Medical (3) Complicated urinary tract infection: Code(s): N39.0 - Urinary tract infection, site not specified Category: Medical Plan Continue bladder medications Six-month follow-up repeat PSA Orders: Orders PSA,Total (Free>4and<10) 6 Months R97.20 - Elevated prostate specific antigen [PSA] Medications: Refilled methenamine hippurate 1 g PO DAILY 90 tabs 1RF 90 days N39.0 - Urinary tract infection, site not specified, R97.20 - Elevated prostate specific antigen [PSA] ascorbic acid (vitamin C) 1,000 mg PO DAILY 90 tabs 1RF 90 days N39.0 - Urinary tract infection, site not specified Coding Level of Care Code Est Pt Level 3 (59162) Complex EM visit Add On G2211 Diagnoses Nocturia R35.1 Elevated PSA R97.20 Complicated urinary tract infection N39.0
--- OUTSIDE RECORDS SUMMARY | 2024-10-05 11:38 | XMS_ITS | Clinical Summary ---
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 4 Active lisinopril (PRINIVIL,ZESTRIL ) 20 MG tabletIndications :Essential hypertension TAKE 1 TABLET(20 MG) BY MOUTH DAILY 90 tablet 3 4 Active VITAMIN C 1000 MG tablet Take 1 tablet by mouth every morning. 4 Active methenamine (HIPREX) 1 gram tablet Take 1 tablet by mouth every morning. 5 Active hydrocortisone valerate 0.2 % creamIndications: Rash and other nonspecific skin eruption APPLY TOPICALLY TO THE AFFECTED AREA TWICE DAILY 45 g 3 5 Active ibuprofen (ADVIL,MOTRIN) 400 MG tablet Take 400-600 mg by mouth every 6 (six) hours as needed for pain (specific location in comments). Active doxycycline monohydrate (MONODOX) 100 MG capsuleIndication s:Acute bronchitis, unspecified organism Take 1 capsule (100 mg total) by mouth 2 (two) times a day. 14 capsule Active Active Problems Problem Noted Date Diagnosed Date Mid back pain 07/25/2024 Back spasm 07/25/2024 Assessment & Plan (07/25/2024 11:30 AM EDT): Torsion injury to the thoracic spine resulting in presumably muscle tears within the thoracic musculature, would be amenable to cyclobenzaprine for muscle relaxation 5 mg 3 times daily and if tolerated and necessary can increase to 10 mg 3 times daily. The cough caused him to wince, will suppress the cough for a week with some guaifenesin and codeine and the codeine can also help with the pain. Increase ibuprofen to 800 mg p.o. 3 times daily that is Advil [id number]. To promote muscle relaxation Slow-Mag 1 tablet nightly. Will obtain x-rays of the lumbar and thoracic spine to assess for alignment and fractures. 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 Daughter is retired nurse so maybe she can check blood pressure at home and then we can add an antihypertensive temporarily if needed. There is no signs of hypertensive urgency. Hyperlipidemia Encounters Date Type Department Care Team Description 09/24/2024 Telephone [facility] Internal Medicine [address] [place] [address] Desiree Moser RN Results 09/23/2024 Telephone [facility] [address] [facility] [place] [address] Yaya Pritchett MD 09/19/2024 Orders Only [facility] Internal Medicine [address] [facility] [place] [address] ProviderRosalino MD 07/31/2024 4:30 PM EDT Office Visit [facility] Internal Medicine [address] [place] [address] Yaya Pritchett MD Acute bronchitis, unspecified organism (Primary Dx); Acute cough; Primary hypertension; Nocturia 07/30/2024 Telephone [facility] Internal Medicine [address] [place] [address] Yaya Pritchett MD Triage (Leake+Cough with yellow/green phlegm) 07/25/2024 12:32 PM EDT - 07/25/2024 11:59 PM EDT Hospital Encounter [address] [address] Pradeep Polk MD Discharge Disposition: Home or Self Care 07/25/2024 12:31 PM EDT Hospital Encounter [address] [address] Pradeep Polk MD Discharge Disposition: Home or Self Care 07/25/2024 11:00 AM EDT Office Visit [facility] Internal Medicine [address] [place] [address] Pradeep Polk MD Mid back pain (Primary Dx); Acute cough; Back spasm; Primary hypertension 07/25/2024 Telephone [facility] Internal Medicine [address] [place] [address] Yaya Pritchett MD Results 07/25/2024 Telephone [facility] Internal Medicine [address] [place] [address] Pradeep Polk MD BP 07/24/2024 Telephone [facility] Internal Medicine [address], [place] [id number] Yaya Pritchett MD Triage (RED + fall + back pain ) from Last 3 Months Immunizations Immunization Administration Dates Next Due COVID-19 (Pre-01/10) Pfizer Vaccine, mRNA, PF 05/13/2020,04/22/2020 COVID-19 Pfizer Comirnaty Vaccine 12+ 12/31/2022 Influenza High-Dose Quadriva lent Preservative Free IM 01/26/2022,12/26/2020,12/25/2019 Influenza High-Dose Trivalen t Preservative Free IM 12/08/2023,01/16/2019,02/06/2018,04/18,01/29/2013 Influenza Quadrivalent Adjuv anted Preservative Free IM 12/31/2022 Influenza, Unspecified Formulation 01/26/2022 Pneumococcal conjugate PCV13 01/16/2019 Pneumococcal polysaccharide PPSV23 04/18/2017 Td (adult),2 Lf Tetanus Toxo id, PF, Adsorbed 01/24/2018 Tdap 11/09/2022 Family History Medical History Relation Comments Atrial fibrillation Brother pacemaker Cirrhosis Daughter 1 Migraines Daughter 1 Cardiovascular disease Father Heart failure Mother well manged; d from massive stroke Alzheimer's disease Sister Relation Status Comments Brother Alive Daughter 1 Alive Daughter 2 Alive Daughter 3 Alive Daughter 4 Alive Daughter 5 Alive Father (Age 48) diagnosed with CVD Mother (Age 97) Sister Social History Tobacco Use Types Packs/Day Years Used Date Smoking Tobacco: Never Smokeless Tobacco: Never Tobacco Cessation:Counseling Given: Not Answered Alcohol Use Standard Drinks/Week Comments Not Currently 0 (1 standard drink = 0.6 oz pur e alcohol) last drink 04/2023 Education Answer Date Recorded Are you interested in more education? Not on jael e 07/16/2022 Are you concerned about learning? Not on file 07/16/2022 No 07/16/2022 No 07/16/2022 Digital Access Answer Date Recorded No 08/16/2022 No 08/16/2022 Reliable internet access at home? Not on file 08/16/2022 Device with a working camera? Not on file Intimate Partner Violence Answer Date R ecorded Are you denied basic needs s uch as food, clothing, or medical care? No 04/20/2024 In the past 12 months have y ou been in a relationship with a person who hurts, threatens, or tries to control you? No 04/20/2024 Are you denied basic needs s uch as food, clothing, or medical care? No 04/20/2024 In the past 12 months have y ou been in a relationship with a person who hurts, threatens, or tries to control you? No 04/20/2024 Sex and Gender Information Value Date Recorded Sex Assigned at Not on file Legal Sex Male 10:14 PM EDT Gender Identity Not on file Sexual Orientation Not on file Last Filed Vital Signs Vital Sign Reading Time Taken Comments Blood Pressure 128/80 07/31/2024 5:02 PM EDT Pulse 68 07/31/2024 5:02 PM EDT Temperature 36.4 C (97.6 F) 07/31/2024 5:02 PM EDT Respiratory Rate 22 07/31/2024 5:02 PM EDT Oxygen Saturation 96% 07/31/2024 5:02 PM EDT Inhaled Oxygen Concentration - - Weight 86.5 kg (190 lb 12.8 oz) 07/31/2024 5:02 PM EDT Height 175.3 cm (5' 9.02 ) 07/31/2024 5:02 PM ED T Body Mass Index 28.16 07/31/2024 5:02 PM EDT Plan of Treatment Upcoming Encounters Date Type Department Care Team (Late st Contact Info) Description 10/17/2024 3:30 PM EDT Office Visit [facility] Internal Medicine [address] [place] [address] Yaya Pritchett MD [address] [place] [address] [email or web address] Health Maintenance Due Date Last Done Comments ZOSTER VACCINES (1 of 2) 1985 RSV VACCINE (1 - 1-dose 75+ series) 2010 COVID-19 VACCINE ( season) 2024 01/20/2024, 12/31/2022, 01/26/2022, Additional history exists DEPRESSION SCREENING 04/20/2025 04/20/2024 CREATININE LEVEL 05/15/2025 05/15/2024, 08/2023, 11/21/2023, Additional history exists POTASSIUM LEVEL 05/15/2025 05/15/2024, 0908/2023, 11/21/2023, Additional history exists Adult Td,Tdap Booster 11/09/2032 11/09/2022, 018 PNEUMOCOCCAL VACCINES (50+ years) Completed 01/16/2019, 04/18/2017 HEPATITIS A VACCINES Aged Out No long er eligible based on patient's age to complete this topic HIB VACCINES Aged Out No longer eligi ble based on patient's age to complete this topic MENINGOCOCCAL VACCINES (ACWY) Aged Out No longer eligible based on patient's age to complete this topic MENINGOCOCCAL VACCINES (B) Aged Out N o longer eligible based on patient's age to complete this topic Medical Devices Not on file Procedures Procedure Name Priority Date/Time Associated Diagnosis Comments OUTSIDE LAB Routine 09/17/2024 2:25 PM EDT OUTSIDE LAB Routine 09/17/2024 12:37 PM EDT POCT COVID-19 RT-PCR/INFLUENZA A & B/RSV CEPHEID Routine 07/31/2024 5:42 PM EDT XR LUMBOSACRAL SPINE 2-3 VIEWS Urgent/patient waiting 07/25/2024 1:31 PM EDT Mid back pain XR THORACIC SPINE 2 VIEW Urgent/patient waiting 07/25/2024 1:30 PM EDT Mid back pain COMPREHENSIVE METABOLIC PANEL Routine 05/15/2024 8:40 AM EST Benign essential hypertension Peripheral polyneuropathy Impaired fasting glucose from Last 3 Months or Most Recently Relevant to Health Maintenance Results * Outside Lab (09/17/2024 2:25 PM EDT) Only the most recent of2 resultswithin the time period is included. us Historical Provider LAB BLOOD ORDERABLES Colleen l Result * POCT COVID-19 RT-PCR/Influenza A & B/RSV (Cepheid) (07/31/2024 5:42 PM EDT) [facility] RSV PCR Negative Negative [facility] SARS-CoV-2 (COVID-19) Negative Negative [facility] Influenza A PCR Negative Negative [facility] Influenza B PCR Negative Negative [facility] 07/31/2024 5:42 PM EDT 07/31/2024 6:23 PM EDT us Yaya Pritchett MD POINT OF CARE TEST ORDERABLES Final Result Performing Organization Address City/State/[facility] Co de Phone Number [facility] [address] [place] [address], [place] [phone] * XR LUMBOSACRAL SPINE 2-3 VIEWS (07/25/2024 1:31 PM EDT) Anatomical Region Laterality Modality L-spine Computed Radiogr aphy 07/25/2024 1:36 PM EDT Impressions 07/25/2024 1:38 PM EDT Degenerative changes of the thoracolumbar spine. Narrative 07/25/2024 1:38 PM EDT XR THORACIC SPINE 2 VIEW, XR LUMBOSACRAL SPINE 2-3 VIEWS Referring clinician's provided indication for this examination in [facility]: Pain COMPARISON: CT ABDOMEN/PELVIS WITH CONTRAST FINDINGS: Dextrocurvature of the thoracolumbar spine, possibly positional. Straightened lumbar lordosis. Thoracolumbar vertebral body heights are maintained. Multilevel degenerative changes with disc height loss, endplate osteophytes, and facet arthropathy throughout the thoracolumbar spine. Degenerative changes of the sacroiliac joints. Vascular calcifications. Procedure Note Edvin Brenner MD - 07/25/2024 XR THORACIC SPINE 2 VIEW, XR LUMBOSACRAL SPINE 2-3 VIEWS Referring clinician's provided indication for this examination in [facility]:Pain COMPARISON: CT ABDOMEN/PELVIS WITH CONTRAST FINDINGS: Dextrocurvature of the thoracolumbar spine, possibly positional.Straightened lumbar lordosis. Thoracolumbar vertebral body heights aremaintained. Multilevel degenerative changes with disc height loss,endplate osteophytes, and facet arthropathy throughout the thoracolumbarspine. Degenerative changes of the sacroiliac joints. Vascularcalcifications. IMPRESSION: Degenerative changes of the thoracolumbar spine. Pradeep Polk MD IMG XR SPINE Final Result * XR THORACIC SPINE 2 VIEW (07/25/2024 1:30 PM EDT) Anatomical Region Laterality Modality T-spine Computed Radiogr aphy 07/25/2024 1:36 PM EDT Impressions 07/25/2024 1:38 PM EDT Degenerative changes of the thoracolumbar spine. Narrative 07/25/2024 1:38 PM EDT XR THORACIC SPINE 2 VIEW, XR LUMBOSACRAL SPINE 2-3 VIEWS Referring clinician's provided indication for this examination in [facility]: Pain COMPARISON: CT ABDOMEN/PELVIS WITH CONTRAST FINDINGS: Dextrocurvature of the thoracolumbar spine, possibly positional. Straightened lumbar lordosis. Thoracolumbar vertebral body heights are maintained. Multilevel degenerative changes with disc height loss, endplate osteophytes, and facet arthropathy throughout the thoracolumbar spine. Degenerative changes of the sacroiliac joints. Vascular calcifications. Procedure Note Edvin Brenner MD - 07/25/2024 XR THORACIC SPINE 2 VIEW, XR LUMBOSACRAL SPINE 2-3 VIEWS Referring clinician's provided indication for this examination in [facility]:Pain COMPARISON: CT ABDOMEN/PELVIS WITH CONTRAST FINDINGS: Dextrocurvature of the thoracolumbar spine, possibly positional.Straightened lumbar lordosis. Thoracolumbar vertebral body heights aremaintained. Multilevel degenerative changes with disc height loss,endplate osteophytes, and facet arthropathy throughout the thoracolumbarspine. Degenerative changes of the sacroiliac joints. Vascularcalcifications. IMPRESSION: Degenerative changes of the thoracolumbar spine. us Pradeep Polk MD IMG XR SPINE Final Result * (ABNORMAL) Comprehensive metabolic panel (05/15/2024 8:40 AM EST) SODIUM 140 133 - 146 mmol/L [facility] POTASSIUM 4.3 3.3 - 5.1 mmol/L [facility] CHLORIDE 104 96 - 108 mmol/L [facility] CO2 25 21 - 35 mmol/L [facility] BUN 20(H) 6 - 19 mg/dL [facility] CREATININE 1.00 0.5 - 1.5 mg/dL [facility] GLUCOSE 112(H) 70 - 99 mg/dL [facility] ALBUMIN 4.1 3.9 - 4.8 g/dL [facility] TOTAL PROTEIN 7.4 6.5 - 8.0 g/dL [facility] CALCIUM 9.5 8.4 - 10.3 mg/dL [facility] ALKALINE PHOSPHATASE 62 39 - 117 U/L [facility] TOTAL BILIRUBIN 0.6 0.0 - 1.2 mg/dL [facility] AST 17 0 - 37 U/L [facility] ALT 19 0 - 40 U/L [facility] GLOBULIN 3.3 1 - 4.8 g/dL [facility] EGFR 72 >59 mL/min/1.7 3m2 [facility] Comment:Estimated glomerular filtration rate calculated using the CKD-EPI refit equation. ANION GAP 15 10 - 20 mmol/L [facility] Blood 05/15/2024 8:40 AM EST 05/15/2024 8:49 AM EST us Yaya Pritchett MD LAB BLOOD ORDERABLES Final Re sult [facility] [address] [place], [place] [id number] from Last 3 Months or Most Recently Relevant to Health Maintenance Insurance * Guarantor: Alvin Staley Account Type Relation to Patient Date of Phone Billing Address Personal/Family Self [address] [place] [address] MEDICARE PART A & B [employer] EX[employer]ION MEDICARE SUPPLEMENT * Guarantor: Alvin Staley Account Type Relation to Patient Date of Phone Billing Address Personal/Family Self [address] [place] [address] MEDICARE PART A & B [employer] [facility] EXTENSION MEDICARE SUPPLEMENT MEDICARE PART A & B [employer] MEDICARE SUPPLEMENT [employer] MEDICARE SUPPLEMENT MEDICARE PART A & B [facility] MEDICARE SUPPLEMENT MEDICARE PART A & [place] [address] [address] [address] MEDICARE SUPPLEMENT MEDICARE PART A & B [facility] MEDICARE SUPPLEMENT MEDICARE PART A & B [employer] MEDICARE SUPPLEMENT MEDICARE PART A & B [employer] EXTENSION MEDICARE SUPPLEMENT Advance Directives For more information, please contact: [phone] (9AM - 5PM [facility], Tuesday-Tuesday) Documents on File Type Date Recorded Patient Assistant Project Manager Expl anation Healthcare Proxy 08/29/2023 [facility] proxy Care Teams Dredge Pipe Installer Relationship Specialty Start Date End Date Yaya Pritchett MD [address] [place] [address] PCP - General Internal Medicine 04/19/19 Yaya Pritchett MD [address] [place] [address] Insurance Assigned Provider 06/25/23 Jose Ramon Peralta MD [address] [place] [address] Urology 03/07/23 Additional Source Comments The information contained in this document represents components of the legal health record. It is not the complete legal health record.[facility]
== END 2024-10-05 12:03 | disposition home or self-care (01) ==
PROVIDERS: PCP Internal Medicine; Visit Provider Urology
DX: R35.1 Nocturia (principal); R97.20 Elevated prostate specific antigen [PSA]; N39.0 Urinary tract infection, site not specified; Z13.9 Encounter for screening, unspecified
CPT/HCPCS: 99213; G2211